=== PATIENT | male | born 1975 | race African-American/Black ===

== ENCOUNTER 2019-11-03 23:49 | Inpatient (IN) | payer MEDICAID ==
[~2019-11-03] VITALS: Ht 172.7 cm; Wt 71.2 kg
--- NOTE | 2019-11-03 23:55 | NUR ---
PT AAOX4. BIBMOTHER C/O R SCAPULA PAIN SINCE WEDNESDAY, WAS SEEN AT [facility] AND DISCHAGRED WITH MOTRIN. PT STILL C/O OF THE PAIN. ALSO, PT C/O "UNABLE TO WALK" SINCE 3PM TODAY. PLACED IN BED 9, ON MONITOR AND PULSE OX. UPON ASSESSMENT PT ABLE TO MOVE ALL EXTREMITIES, NO NEURO DEFICIT. PT WAS ABLE TO STAND, PUSH, AND PULL HIS FEET. KENDRICK. AT BEDSIDE FOR EVAL.
--- NOTE | 2019-11-04 00:10 | NUR ---
LINE ESTABLISHED RAC 18G FOR CT; LABS GIVEN TO CONCRETE CRAFTSMAN. RECTAL TEMP CHECKED, MD AWARE.
[2019-11-04] MEDS ORDERED: ONDANSETRON HCL/PF 4 MG/2 ML VIAL ONE (00:27)
[2019-11-04] MEDS ORDERED: MORPHINE SULFATE INJ 4 MG/ML DISP.SYRIN ONE (00:27)
[2019-11-04] MEDS ORDERED: MORPHINE SULFATE INJ 2 MG/ML DISP.SYRIN IV ONE (00:30)
[2019-11-04] MEDS ORDERED: ONDANSETRON HCL/PF 4 MG/2 ML VIAL IV ONE (00:30)
[2019-11-04 00:33] LABS: BASOPHILS % (AUTO) 0.3 % (0.0-2.0); EOSINOPHILS % (AUTO) 0.3 % (0.0-6.0); HEMATOCRIT 41 % (39-51); HEMOGLOBIN 13.7 g/dL (13.5-17.5); LYMPHOCYTES # (AUTO) 0.6 /CMM (0.8-4.8); LYMPHOCYTES % (AUTO) 4.6 % (20.0-44.0); MEAN CORPUSCULAR HGB CONC 34 g/dl (31.0-36.0); MEAN CORPUSCULAR VOLUME 84 fL (80-96); MONOCYTES # (AUTO) 0.9 /CMM (0.1-1.30); MONOCYTES % (AUTO) 7.2 % (2.0-12.0); NEUTROPHILS # (AUTO) 11.1 /CMM (1.8-8.9); NEUTROPHILS % (AUTO) 87.6 % (43.0-81.0); PLATELET COUNT (AUTO) 328 /CMM (150-450); RED BLOOD CELL COUNT(AUTO) 4.87 MIL/uL (4.5-6.0); WHITE BLOOD COUNT (AUTO) 12.7 K/uL (4.3-11.0)
[2019-11-04] MEDS ORDERED: ACETAMINOPHEN ES 500 MG TABLET ONE (00:35)
--- NOTE | 2019-11-04 00:38 | NUR ---
PT WAS ASKED TO GIVE A URINE SAMPLE, PT STATED HE WAS UNABLE TO. AFTER EXPLAINING THAT A CATHETER WOULD BE USED TO OBTAIN URINE; PT STATED HE WOULD TRY. PT STOOD ON BOTH FEET, WITHOUT ANY ASSITANCE TO URINATE.
--- NOTE | 2019-11-04 00:39 | NUR ---
URINE PROVIDED BY PATIENT; SENT TO LAB.
[2019-11-04 00:45] LABS: APPEARANCE,URINE Clear (CLEAR); BILIRUBIN,URINE SMALL (NEGATIVE); BLOOD, URINE Trace-intact Ery/uL (NEGATIVE); COLOR,URINE Yellow (YELLOW); KETONES,URINE 80 (NEGATIVE); LEUKOCYTE ESTERASE ,URINE Negative (NEGATIVE); NITRITE, URINE Negative (NEGATIVE); PROTEIN,URINE Negative (NEGATIVE); UGLUCOSE 500 MG/DL mg/dL (NEGATIVE); UROBILINOGEN,URINE 0.2 EU/dL (0.2)
--- NOTE | 2019-11-04 00:51 | NUR ---
PT BROUGHT TO CT.
[2019-11-04 01:00] LABS: CALCIUM, SERUM 9.1 mg/dL (8.5-10.1); CARBON DIOXIDE 25 mmol/L (21-32); CHLORIDE 95 mmol/L (98-107); POTASSIUM 3.8 mmol/L (3.5-5.1); SODIUM SERUM 132 mmol/L (136-145); UREA NITROGEN, BLOOD 19 mg/dL (7-18)
[2019-11-04] MEDS ORDERED: ACETAMINOPHEN 325 MG TABLET PO ONE (01:00)
[2019-11-04 01:01] LABS: BACTERIA,URINE Rare /HPF (None Seen); SQUAMOUS EPITHELIAL CELL,UR Rare /HPF (None Seen)
[2019-11-04 01:04] LABS: GLUCOSE 375 mg/dL (74-106)
--- NOTE | 2019-11-04 01:22 | NUR ---
BROUGHT BACK FROM CT
[2019-11-04] MEDS ORDERED: IV NS 0.9% 1,000 ML BAG IV ONE (01:30)
--- NOTE | 2019-11-04 01:39 | NUR ---
PT ABLE TO STAND. ALSO, WAS ABLE TO WALK BY HIMSELF WITH MINIMAL HELP. AWARE.
--- NOTE | 2019-11-04 02:34 | NUR ---
Patient is resting comfortably in bed. Easily aroused. VSS.
[2019-11-04] MEDS ORDERED: MAGNESIUM HYDROXIDE 30 ML UDC PO PRN (03:00)
[2019-11-04] MEDS ORDERED: ZOLPIDEM TARTRATE 5 MG TABLET PO PRN (03:00)
[2019-11-04] MEDS ORDERED: HYDROCODONE/APAP 5/325MG TABLET PO PRN (03:00)
[2019-11-04] MEDS ORDERED: MAG HYDROX/AL HYDROX/SIMETH 30 ML UDC PO PRN (03:00)
[2019-11-04] MEDS ORDERED: Z GUARD REMEDY 2 OZ OINT TP PRN (03:00)
[2019-11-04] MEDS ORDERED: ACETAMINOPHEN 325 MG TABLET PO PRN (03:00)
[2019-11-04] MEDS ORDERED: ONDANSETRON HCL/PF 4 MG/2 ML VIAL IVP PRN (03:00)
[2019-11-04] MEDS ORDERED: DEXTROSE 50%-WATER 50 ML DISP.SYRIN IV PRN (03:00)
[2019-11-04] MEDS ORDERED: *INSULIN REGULAR(HUMULIN R)HUM 100 UNIT/ML VIAL SQ PRN (03:00)
[2019-11-04 03:45] VITALS: BP 141/80
--- NOTE | 2019-11-04 04:00 | NUR ---
MS RN: ADMISSION 44 years old male admitted for Dx. Weakness. Patient is A/O x2, trouble understanding and speaking words when asked. Skin intact. BLE weakness. Stable oxygenation on room air. Fall precaution maintained.
[2019-11-04 04:30] VITALS: BP 141/80
--- NOTE | 2019-11-04 05:37 | NUR ---
MS RN: NIH SCORE Patient had eval for Stoke at ER prior transfer, Dr. Hudson made aware, per MD to do NIH stroke scale also at the unit. NIH stroke scale score 7. Notified Dr. Hudson with result and informed MD core measure stroke/ aspirin to give within 24 hours.
--- NOTE | 2019-11-04 06:20 | NUR ---
MS RN: SWALLOW EVAL Patient failed bedside swallow screen, trouble speaking and understanding words. Notified cody Rivas patient NPO, Speech therapy consult.
[2019-11-04] MEDS: BLOOD SUGAR DIAGNOSTIC 1 EACH STRIP VI SCH ×4 (06:34→23:05)
[2019-11-04] MEDS: INSULIN REGULAR, HUMAN 100 UNIT/ML 3 ML VIAL SQ PRN ×3 (06:48→18:42)
--- NOTE | 2019-11-04 06:48 | NUR ---
MS RN: BLOOD GLUCOSE Blood sugar 301 mg/dl patient is NPO, notified Dr. Hudson. Order place. Given 12 units insulin dose per parameters, ok to give per MD. Also informed MD with Core measure/stoke Aspirin within 24 hours to give.
[2019-11-04] MEDS ORDERED: ASPIRIN 325 MG TABLET PO ONE (07:00)
--- NOTE | 2019-11-04 07:39 | NUR ---
MS RN: END OF SHIFT REPORT Patient in bed, awake, stable oxygenation on room air. NPO awaiting Speech eval. Weakness BLE, patient reports unable to walk. Plan for PT consult today. Frequent neuro check assessment. Stroke eduction provided to patient. Aspirin to be given, endorsed to ENRRIQUE Monge for continuity of care.
--- NOTE | 2019-11-04 07:45 | NUR ---
RN MS NOTES PT IN BED, AWAKE, ALERT AND ORIENTED, RESPIRATIONS NORMAL AND UNLABORED, WITH COMPLAINT OF PAIN TO UPPER RIGHT BACK AND LOWER BACK, WITH BLE WEAKNESS, NURSING SWALLOW EVAL DONE, NO PROBLEMS NOTED, CALL LIGHT WITHIN REACH.
[2019-11-04 08:00] VITALS: BP 143/84
--- NOTE | 2019-11-04 08:35 | NUR ---
RN MS NOTES NURSING SWALLOW EVAL PERFORMED, NO PROBLEM NOTED.
[2019-11-04] MEDS ORDERED: POLYETHYLENE GLYCOL 3350 17 GM POWD.PACK PO PRN (11:30)
[2019-11-04] MEDS: IV NS 0.9% 1,000 ML IV PRN (11:53)
--- NOTE | 2019-11-04 12:30 | NUR ---
RN MS NOTES PT COMPLAINED OF UNABLE TO URINATE, NOTED WITH BLADDER DISTENTION, BLADDER SCAN SHOWED 900ML OF URINE, DR. PHELAN INFORMED, ORDERED TO INSERT STEVENS, PT TOLERATED PROCEDURE WELL, ALSO INFORMED OF URINE CULTURE FROM [facility] LYNN EID MD ORDERED TO START PT ON IV FLUIDS AND ROCEPHIN DAILY, PT INFORMED, VERBALIZED UNDERSTANDING, PT ALSO STARTED ON CCHO DIET ORDERED.
[2019-11-04] MEDS: CEFTRIAXONE 1 G in IV D5W 50 ML IV SCH (13:05)
--- NOTE | 2019-11-04 13:46 | NUR ---
RN MS NOTES SEEN AND EXAMINED BY DR. PHELAN, PLAN OF CARE DISCUSSED WITH PT, VERBALIZED UNDERSTANDING. SEEN AND EVALUATED BY CHAR KRUGER.
[2019-11-04 16:00] VITALS: BP 143/76
--- NOTE | 2019-11-04 16:26 | NUR ---
TEXTED DR. DOBSON FOR MRI APPROVAL.
--- NOTE | 2019-11-04 16:33 | NUR ---
MRI APPROVED, HEAD ATHLETIC TRAINER/STRENGTH COACH IS ON HIS WAY IN NOW.
--- NOTE | 2019-11-04 19:00 | NUR ---
RN MS NOTES PT IN BED, RESTING, NO COMPLAINT OF PAIN AT THIS TIME, RESPIRATIONS NORMAL, CALL LIGHT WITHIN REACH, IV FLUIDS INFUSING WELL, COMPLETED MRI BRAIN AND MRI SPINE, AWAITING RESULTS, ATE DINNER, BS CHECKED, ASSISTED WITH MEALS AND REPOSITIONING, ALL NEEDS ATTENDED.
[2019-11-04 20:00] VITALS: BP 149/78
--- NOTE | 2019-11-04 20:00 | NUR ---
MS/RN OPENING NOTES RECEIVED PATIENT IN BED. AWAKE, ALERT X3, ABLE TO VERBALIZE NEEDS, BELONGINGS WITHIN REACH, PROVIDED ICE CHIPS PER REQUEST AND NAUSEA BAGS. DISCUSSED CONCERNS REGARDING PENDING MRI AND THAT FEEL DIZZY. TO CARE AND FOLLOWUP CONCERNS. RECEIVED ENDORSEMENT FROM AM RN FOR SHERIN. RESPIRATIONS EVEN AND UNLABORED.WILL MONITOR,
--- NOTE | 2019-11-04 20:55 | NUR ---
MS/RN NOTES PATIENT AWAKE, ALERT, CAN OPEN EYES, RESPIRATIS EVEN AND UNLABORED BUT REPORTED NO SENSATION ON BLE. TO FOLLOW UP.
[2019-11-04] MEDS ORDERED: INSULIN GLARGINE, 100 UNIT/ML CARTRIDGE SQ SCH (22:00)
--- NOTE | 2019-11-04 23:10 | NUR ---
BS CHECK AT 214 TO GIVE COVERAGE AND LANTUS ORDERED.
[2019-11-05] MEDS: IV NS 0.9% 1,000 ML IV PRN ×2 (05:59→14:20)
[2019-11-05] MEDS: BLOOD SUGAR DIAGNOSTIC 1 EACH STRIP VI SCH ×3 (06:23→17:20)
[2019-11-05] MEDS: INSULIN REGULAR, HUMAN 100 UNIT/ML 3 ML VIAL SQ PRN ×2 (06:30→12:19)
--- NOTE | 2019-11-05 07:30 | NUR ---
RN MS NOTES PT IN BED, AWAKE, ALERT AND ORIENTED, NO COMPLAINT OF PAIN, RESPIRATIONS NORMAL AND NOT LABORED, COMPLAINING OF NO SENSATION ON BLE'S, IV FLUIDS INFUSING WELL, ENCOURAGED TO EAT, VERBALIZED UNDERSTANDING, CALL LIGHT WITHIN REACH, NEEDS ATTENDED.
--- NOTE | 2019-11-05 07:37 | NUR ---
312-1 MS/RN NOTES PATIENT ABLE TO SLEEP DURING THE NIGHT, ON ROOM AIR BREATHING EVEN AND UNLABORED, IV FLUID INFUSING, ATTENDED TO ALL NEEDS, STEVENS CATHETHER DRAINING URINE, MONITORED FOR ANY CHANGES. WILL ENDORSE TO AM RN FOR SHERIN. BED LOCKED, CALL LIGTHS WITHIN REACH.
[2019-11-05 08:00] VITALS: BP 125/70
[2019-11-05 08:15] LABS: BASOPHILS % (AUTO) 0.2 % (0.0-2.0); EOSINOPHILS % (AUTO) 0.9 % (0.0-6.0); HEMATOCRIT 38 % (39-51); HEMOGLOBIN 12.9 g/dL (13.5-17.5); LYMPHOCYTES # (AUTO) 0.6 /CMM (0.8-4.8); LYMPHOCYTES % (AUTO) 5.8 % (20.0-44.0); MEAN CORPUSCULAR HGB CONC 34 g/dl (31.0-36.0); MEAN CORPUSCULAR VOLUME 84 fL (80-96); MONOCYTES # (AUTO) 0.8 /CMM (0.1-1.30); MONOCYTES % (AUTO) 7.5 % (2.0-12.0); NEUTROPHILS # (AUTO) 9.4 /CMM (1.8-8.9); NEUTROPHILS % (AUTO) 85.6 % (43.0-81.0); PLATELET COUNT (AUTO) 327 /CMM (150-450); RED BLOOD CELL COUNT(AUTO) 4.53 MIL/uL (4.5-6.0); WHITE BLOOD COUNT (AUTO) 10.9 K/uL (4.3-11.0)
[2019-11-05 09:05] LABS: CALCIUM, SERUM 8.4 mg/dL (8.5-10.1); CREATININE 0.7 mg/dL (0.6-1.3); MAGNESIUM 1.7 mg/dL (1.8-2.4); PHOSPHORUS 2.4 mg/dL (2.5-4.9); POTASSIUM 3.3 mmol/L (3.5-5.1); THYROID STIMULATING HORMONE 1.514 uIU/mL (0.358-3.74)
[2019-11-05] MEDS ORDERED: K PHOS NEUTRAL 250 MG TABLET PO ONE (11:30)
--- NOTE | 2019-11-05 11:50 | NUR ---
assisted dr. Urbina with LP, pt tolerated well, no pain or bleeding noted. CSF delivered to the lab by Mariposa OSUNA.
[2019-11-05] MEDS: CEFTRIAXONE 1 G in IV D5W 50 ML IV SCH (12:17)
[2019-11-05 12:43] LABS: CSF GLUCOSE 100 mg/dL (40-70)
[2019-11-05 12:48] LABS: ABG BASE EXCESS 1.3 mmol/L; ABG OXYGEN SATURATION 96.1 % (92.0-98.5); ABG PCO2 33.1 mmHg (35.0-45.0); ABG PH 7.482 (7.350-7.450); ABG PO2 80.4 mmHg (75.0-100.0); AaDO2 29.7 mmHg; COHb 1.1 % (0.5-1.5); MetHb 0.3 % (0.0-1.5); O2Hb 94.8 % (94.0-97.0); SITE, ABG Right Radial; VENT MODE, BG RA
--- NOTE | 2019-11-05 12:51 | NUR ---
RT NOTE PT GIVEN AND INSTRUCTED ON USE OF INCENTIVE SPIROMETER. PT IS UNABLE TO PROPERLY USE THE SPIROMETER DUE TO CHEST PAIN STATED BY PATIENT. ENDORSED I.S. RESULTS TO YO RN AND HIGHWAY CONSTRUCTION INSPECTOR. PT IS ON ROOM AIR. SP02 98%. ABG DRAWN AND RESULTS GIVEN TO YO OSUNA.
[2019-11-05 13:17] LABS: CSF PROTEIN 513.2 mg/dL (15-45)
[2019-11-05] MEDS ORDERED: MISCELLANEOUS MED 1 EA EA XX STA (13:22)
--- NOTE | 2019-11-05 13:28 | NUR ---
RN MS NOTES PT IN BED, AWAKE, ALERT AND ORIENTED, NO COMPLAINT OF PAIN AT THIS TIME, RESPIRATIONS NORMAL, CALL LIGHT WITHIN REACH, IV FLUIDS INFUSING WELL, PT COMPLAINING OF LOSS OF SENSATION TO BLE'S, DR. PHELAN INFORMED, LUMBAR PUNCTURE PERFORMED, SPECIMEN SENT TO LAB, PT SEEN BY DR. JUAREZ, DR. PHELAN ORDERED TO TRANSFER PT TO ICU FOR CLOSE MONITORING, PT INFORMED AND UNDERSTOOD, AGREED WITH PLAN OF CARE, ABG STAT ORDERED, WITH NORMAL RESULTS, MOVED PT TO ICU ROOM 265 VIA ACLS PROTOCOL, WITH ALL MEDS AND BELONGINGS, BEDSIDE REPORT GIVEN TO JOSE A STARTING GATE DRIVER, FAMILY INFORMED OF PT'S TRANSFER, VERBALIZED UNDERSTANDING.
--- NOTE | 2019-11-05 14:00 | NUR ---
UNIVERSITY TUTOR NOTE RECEIVED PATIENT FROM TELE UNIT , ALERT ORIENTED X3 ,ON RA SAT 94% STILL C\O THAT CANT FEEL BOTH LEGS, WITH STEVENS CATH TO GRAVITY WITH YELLOW COLOR URINE, ON IVF ORDERED PATIENT, TAKEN TO MRI DEPARTMENT WILL CONT TO MONITOR CLOSELY
[2019-11-05] MEDS: MORPHINE SULFATE INJ 2 MG/ML DISP.SYRIN IV PRN ×2 (15:06→15:51)
--- NOTE | 2019-11-05 15:10 | NUR ---
NIF and FVC PERFORMED 3 TIMES EACH TEST AND BEST EFFORT LISTED BELOW: NIF: -22 cm H20 FVC: 1. 2 LITER Addendum: 11/05/19 at 1513 by VAN GALLEGOS RT Amended: Links added.
--- NOTE | 2019-11-05 15:28 | NUR ---
MINI LAB OPERATOR NOTE BACK FROM MRI NOT IN DISTRESS, PLACED ON IVF ORDERED RT AC HL INTACT AND FLUSHED WELL , C\O RT SHOULDER PAIN 8\10 MORPHINE 2MG IVP[ GIVEN PER DR LUZ GALVEZ ORDER WILL F\U
--- NOTE | 2019-11-05 15:32 | NUR ---
RESIDENCE DIRECTOR NOTE RT AT BEDSIDE PEAK FLOW ASSESSMENT DONE
--- NOTE | 2019-11-05 15:48 | NUR ---
BRAIDED BAND ASSEMBLER NOTES PERFORMED COVID TEST @1435. SENDING TO THE LAB. CONTINUE TO MONITOR.
[2019-11-05 16:00] VITALS: BP 145/78
[2019-11-05 16:15] VITALS: BP 145/58
[2019-11-05] MEDS ORDERED: VANCOMYCIN HCL 1.25 GM in IV D5W 260 ML IV ONE (16:30)
[2019-11-05] MEDS ORDERED: FEE PK DOSING 1 MIN EA MC ONE (16:35)
--- NOTE | 2019-11-05 16:42 | NUR ---
agricultural research technician note efra Zaman dnp aware of mri spine result, with order to transfer to [facility] acute hospital and keep npo at this time, will f\u
[2019-11-05] MEDS ORDERED: GADOTERIDOL 279.3 MG/ML VIAL IV ONE ×2 (17:48→19:30)
--- NOTE | 2019-11-05 17:50 | NUR ---
NIF / FVC NIF and FVC performed 3 times, Best test listed below: NIF: greater than -60 cm H20 FVC: 2.75 Liter Addendum: 11/05/19 at 1757 by VAN GALLEGOS RT Amended: Links added.
[2019-11-05] MEDS ORDERED: ONDA4VIA23 IVP (17:55)
[2019-11-05] MEDS ORDERED: Morphine Sulfate Inj IV (17:55)
[2019-11-05] MEDS ORDERED: ACET325T53 PO (17:55)
[2019-11-05] MEDS ORDERED: Insulin Glargine,Hum SQ (17:55)
[2019-11-05] MEDS ORDERED: VANC1.2526 IV (17:55)
[2019-11-05] MEDS ORDERED: INSU100V28 SQ (17:55)
[2019-11-05] MEDS ORDERED: CEFT2VIA14 IV (17:55)
[2019-11-05] MEDS ORDERED: Blood Sugar Diagnostic VI (17:55)
[2019-11-05] MEDS ORDERED: CEFTRIAXONE 2 G in IV D5W 100 ML IV SCH (18:00)
[2019-11-05 18:07] VITALS: BP 139/78
--- NOTE | 2019-11-05 18:26 | NUR ---
ICU CLOSING NOTES PT IS GOING TO TRANSFER TO [facility]. WAITING FOR HIGHWAY WORKER. SAFETY MEASURES ARE IMPLEMENTED. BED IN LOWEST POSITION. CALL LIGHT WITHIN REACH.
--- NOTE | 2019-11-05 19:19 | NUR ---
CAR MANAGER NOTES AMBULANCE ARRIVED. REPORT GIVEN TO ECTOR. CALLED [facility]. TRAINING AND DEVELOPMENT PROFESSIONAL IS AWARE. STEVENS CATHETER EMPTIED. PT IS IN STABLE CONDITION. Addendum: 11/05/19 at 1929 by JOSE A ZHONG RN spoke with family emma aware that patient will be transfer to [facility]
[2019-11-06] MEDS ORDERED: VANCOMYCIN HCL 1.25 GM in IV D5W 260 ML IV SCH (01:00)
[2019-11-06] MEDS ORDERED: CEFTRIAXONE 2 G in IV D5W 100 ML IV SCH (18:00)
[2019-11-08 08:06] LABS: *CRYPTOCOCCUS AG, CSF Negative (Negative); *WEST NILE VIRUS IgG, CSF Negative (Negative)
[2019-11-08 10:08] LABS: *WEST NILE VIRUS IgM, CSF Negative (Negative)
[2019-11-08 11:06] LABS: VDRL, CSF Non Reactive (Non Rea:<1:1)
== END 2019-11-05 19:31 | disposition short-term general hospital (02) | DRG 49 ==
LOC: ER 23:57 → MED 11-04 03:16 → ICU 11-05 12:25
PROVIDERS: ADMIT Nurse Practitioner Acute Care; ATTEND Nurse Practitioner Acute Care
DX: G06.1 Intraspinal abscess and granuloma (principal); G61.0 Guillain-Barre syndrome; E11.65 Type 2 diabetes mellitus with hyperglycemia; E87.1 Hypo-osmolality and hyponatremia; D72.829 Elevated white blood cell count, unspecified; E86.0 Dehydration; G95.20 Unspecified cord compression; N13.30 Unspecified hydronephrosis; N32.89 Other specified disorders of bladder; G06.2 Extradural and subdural abscess, unspecified
CPT/HCPCS: 36415; 36600; 70450-TC; 70551-TC; 71045-TC; 71250-TC; 72131-TC; 72157-TC; 72158-TC; 80048-TC; 80061-TC; 81000-TC; 82962-TC; 83735-TC; 84100-TC; 84443-TC; 84484-TC; 85025-TC; 85652-TC; 85730-TC; 86140-TC; 86592; 86694; 86788; 86789; 87040-TC; 87070-TC; 87081-TC; 87086-TC; 87899; 89051-TC; 97112-TC; 97530-TC; A6403; A9579; G0378; J0696; J1815; J2270; J2405; J7030; J7040; J7060; U0003-CS

== ENCOUNTER 2019-11-07 17:20 | Inpatient (IN) | payer MEDICAID ==
[~2019-11-07] VITALS: Ht 165.1 cm; Wt 67.1 kg
[~2019-11-07 17:20] MED LIST: ACET325T53 PO; Blood Sugar Diagnostic VI; CEFT2VIA14 IV; INSU100V28 SQ; Insulin Glargine,Hum SQ; Morphine Sulfate Inj IV; ONDA4VIA23 IVP; VANC1.2526 IV
[2019-11-07 22:45] VITALS: BP 134/75
--- NOTE | 2019-11-07 22:45 | NUR ---
CRUSHER AND BLENDER OPERATOR: ADMISSION 44 years old male admitted from [facility]. s/p Thoracic laminectomy decompression on 11/05/[address] Rapp. Patient is A/O x4. Skin assessment done. Left upper back with ROXANA to bulb suction, serosanguineous drainage. Mid upper back incision healing open to air. Patient denies pain, reports no sensation from below rib cage down to bilateral toes, BLE no movement, paraplegic. Patient is cooperative. Mccarthy cath in place. Orientation to room, unit, staff. Fall; skin precaution maintained. Notified Dr. Powell for admission.
[2019-11-07 23:00] VITALS: BP 134/75
[2019-11-07] MEDS ORDERED: INSULIN REGULAR, HUMAN 100 UNIT/ML 3 ML VIAL SQ PRN (23:30)
[2019-11-07] MEDS ORDERED: MAG HYDROX/AL HYDROX/SIMETH 30 ML UDC PO PRN (23:30)
[2019-11-07] MEDS ORDERED: Z GUARD REMEDY 2 OZ OINT TP PRN (23:30)
[2019-11-07] MEDS ORDERED: ONDANSETRON HCL/PF 4 MG/2 ML VIAL IVP PRN ×2 (23:30)
[2019-11-07] MEDS ORDERED: MORPHINE SULFATE INJ 2 MG/ML DISP.SYRIN IV PRN ×2 (23:30)
[2019-11-07] MEDS ORDERED: MAGNESIUM HYDROXIDE 30 ML UDC PO PRN (23:30)
[2019-11-08] MEDS ORDERED: INSU100V39 SQ (00:10)
[2019-11-08] MEDS ORDERED: MORP1VIA3 IV (00:10)
[2019-11-08] MEDS ORDERED: CYCL10TA9 PO (00:10)
[2019-11-08] MEDS ORDERED: CLON0.1T PO (00:10)
[2019-11-08] MEDS ORDERED: PANT40TA2 PO (00:10)
[2019-11-08] MEDS ORDERED: ACET-868 PO (00:10)
[2019-11-08] MEDS ORDERED: DOCU-141 PO (00:10)
[2019-11-08] MEDS ORDERED: HYDR-4384 PO (00:10)
[2019-11-08] MEDS ORDERED: HEPA500013 SQ (00:10)
[2019-11-08] MEDS ORDERED: IPRA3AMP22 IH (00:12)
[2019-11-08] MEDS ORDERED: INSU100V7 SQ (00:16)
[2019-11-08] MEDS ORDERED: BLOOD SUGAR DIAGNOSTIC 1 EACH STRIP IN SCH (00:30)
[2019-11-08] MEDS ORDERED: CEFTRIAXONE 2 G in IV D5W 50 ML IV SCH ×2 (00:30→09:00)
[2019-11-08 00:32] VITALS: BP 129/70
[2019-11-08] MEDS ORDERED: DEXTROSE 50%-WATER 50 ML DISP.SYRIN IV PRN (06:30)
[2019-11-08] MEDS: BLOOD SUGAR DIAGNOSTIC 1 EACH STRIP VI SCH ×4 (06:32→22:05)
[2019-11-08] MEDS: INSULIN REGULAR, HUMAN 100 UNIT/ML 3 ML VIAL SQ PRN ×3 (06:34→17:03)
--- NOTE | 2019-11-08 07:15 | NUR ---
MS RN: END OF SHIFT REPORT Patient in bed, stable oxygenation on room air. Medial back incision dry, no bleeding, denies pain. Left ROXANA to bulb suction with minimal drainage 25ml. Mccarthy to gravity with adequate output. MRSA nares specimen send to lab for test. Fall; skin precaution maintained.
--- NOTE | 2019-11-08 07:20 | NUR ---
MS/RN Opening note Patient received from material handler 2nd shift. Sleeping soundly at this time, appears in no distress or pain at this time. Safety measures in place, call light within reach, will continue to monitor and ensure safety.
[2019-11-08 07:57] LABS: BASOPHILS % (AUTO) 0.1 % (0.0-2.0); EOSINOPHILS % (AUTO) 1.3 % (0.0-6.0); HEMATOCRIT 36 % (39-51); HEMOGLOBIN 11.8 g/dL (13.5-17.5); LYMPHOCYTES # (AUTO) 0.9 /CMM (0.8-4.8); LYMPHOCYTES % (AUTO) 11.3 % (20.0-44.0); MEAN CORPUSCULAR HGB CONC 33 g/dl (31.0-36.0); MEAN CORPUSCULAR VOLUME 84 fL (80-96); MONOCYTES # (AUTO) 0.7 /CMM (0.1-1.30); MONOCYTES % (AUTO) 8.3 % (2.0-12.0); NEUTROPHILS # (AUTO) 6.4 /CMM (1.8-8.9); PLATELET COUNT (AUTO) 324 /CMM (150-450); RED BLOOD CELL COUNT(AUTO) 4.26 MIL/uL (4.5-6.0); WHITE BLOOD COUNT (AUTO) 8.1 K/uL (4.3-11.0)
[2019-11-08 08:00] VITALS: BP 126/71
[2019-11-08 08:20] LABS: CALCIUM, SERUM 7.4 mg/dL (8.5-10.1); CREATININE 0.8 mg/dL (0.6-1.3); MAGNESIUM 1.9 mg/dL (1.8-2.4); PHOSPHORUS 2.6 mg/dL (2.5-4.9); POTASSIUM 3.8 mmol/L (3.5-5.1)
--- NOTE | 2019-11-08 08:50 | NUR ---
MS/RN S/B Dr Arceo Seen by Dr Arceo - morning labs ordered.
[2019-11-08] MEDS ORDERED: Medication Not On Formulary EA (Ceftriaxone Sodium (Rocephin) 2 GM) IV SCH (09:00)
[2019-11-08] MEDS ORDERED: CEFTRIAXONE 2 G in IV D5W 100 ML IV SCH (09:00)
[2019-11-08] MEDS: CEFTRIAXONE 2 G in IV D5W 100 ML IV SCH (09:08)
[2019-11-08] MEDS ORDERED: FEE PK DOSING 1 MIN EA MC ONE (09:42)
--- NOTE | 2019-11-08 09:46 | NUR ---
MS/RN Mercedes Vancomycin ordered, 1gm every eight hours. Trough scheduled 11/09/19 at 9am.
[2019-11-08] MEDS: VANCOMYCIN 1 GM in IV D5W 250 ML IV SCH ×2 (10:35→17:04)
--- NOTE | 2019-11-08 12:23 | NUR ---
MS/RN Blood sugar Blood sugar at noon 215, as per sliding scale 12 units regular insulin administered.
[2019-11-08 15:53] VITALS: BP 138/80
[2019-11-08 16:00] VITALS: BP 138/80
--- NOTE | 2019-11-08 17:00 | NUR ---
MS/RN Blood sugar Blood sugar at 5p 256, as per sliding scale, nine units regular insulin administered.
[2019-11-08] MEDS ORDERED: POLYETHYLENE GLYCOL 3350 17 GM POWD.PACK PO ONE (17:30)
--- NOTE | 2019-11-08 17:32 | NUR ---
MS/RN New orders Dr Arceo made aware that patient has had no bowel movement for 6-7 days, new order given for miralax and colace, first dose of both to be given now.
--- NOTE | 2019-11-08 17:33 | NUR ---
MS/RN Drainage 20ml output from ROXANA drain.
--- NOTE | 2019-11-08 18:04 | NUR ---
MS/RN End note Miralax and MOM administered, no bowel movement as of yet. Denies pain or discomfort, bilateral lower extremities flacid. Denies any feeling or sensation. Patient made aware that Dr Arceo will call sister later this evening after he has received all notes including those from [place]. Will endorse to night shift manager.
--- NOTE | 2019-11-08 19:30 | NUR ---
MS RN NOTES RECEIVED ON BED ON LEFT SIDE POSITION,A/O X4,BREATHING REGULAR,NOT IN NAY FORM OF DISTRESS.STEVENS CATH IN PLACE DRAINING YELLOWISH URINE OUTPUT.PARAPLEGIC ON BOTH LOWER EXTREMITIES.WITH MID UPPER BACK SURGICAL INCISION.S/P LAMINECTOMY ON 11/04,DENIES PAIN AT THE MOMENT.DVT PUMP IN USED FOR DVT PROPHYLAXIS.SALINE LOCK RIGHT FOREARM INTACT AND PATENT.CALL LIGHT IN REACH,NEEDS ANTICIPATED.
[2019-11-08 20:00] VITALS: BP 135/78
--- NOTE | 2019-11-08 22:00 | NUR ---
MS RN NOTES ACCU-CHECK BLOOD SUGAR CHECK 290,COVERED WITH HUMULIN R 6 UNITS Q HS,ALONG WITH LANTUS 10 UNITS PER SLIDING SCALE.SNACKS PROVIDED AT BEDSIDE.
[2019-11-08] MEDS: INSULIN GLARGINE, 100 UNIT/ML CARTRIDGE SQ SCH (22:05)
[2019-11-08] MEDS: *INSULIN REGULAR(HUMULIN R)HUM 100 UNIT/ML VIAL SQ PRN (22:06)
[2019-11-09] MEDS: VANCOMYCIN 1 GM in IV D5W 250 ML IV SCH ×3 (01:56→17:05)
[2019-11-09] MEDS: BLOOD SUGAR DIAGNOSTIC 1 EACH STRIP VI SCH ×4 (05:29→22:22)
--- NOTE | 2019-11-09 05:30 | NUR ---
MS RN NOTES ACCU-CHECK BLOOD SUGAR CHECK 230,COVERED WITH HUMULIN R 6 UNITS PER MODERATE SLIDING SCALE.
[2019-11-09] MEDS: INSULIN REGULAR, HUMAN 100 UNIT/ML 3 ML VIAL SQ PRN ×3 (05:40→17:09)
--- NOTE | 2019-11-09 06:16 | NUR ---
MS RN NOTES FAIRLY RESTED.REMAINS NO BM DESPITE MEDICATION FOR CONSTIPATION GIVEN ON DAYTIME YESTERDAY.DENIES PAIN DISCOMFORTS.ROXANA DRAINS SERO SANGUINOUS OUTPUT 70ML.REPOSITION PER PROTOCOL.CALL LIGHT IN REACH,NEEDS ATTENDED.
[2019-11-09 07:32] LABS: BASOPHILS % (AUTO) 0.3 % (0.0-2.0); EOSINOPHILS % (AUTO) 0.9 % (0.0-6.0); HEMATOCRIT 36 % (39-51); HEMOGLOBIN 12.2 g/dL (13.5-17.5); LYMPHOCYTES % (AUTO) 12.4 % (20.0-44.0); MEAN CORPUSCULAR HGB CONC 34 g/dl (31.0-36.0); MEAN CORPUSCULAR VOLUME 83 fL (80-96); MONOCYTES # (AUTO) 0.7 /CMM (0.1-1.30); MONOCYTES % (AUTO) 7.9 % (2.0-12.0); NEUTROPHILS # (AUTO) 6.7 /CMM (1.8-8.9); NEUTROPHILS % (AUTO) 78.5 % (43.0-81.0); PLATELET COUNT (AUTO) 304 /CMM (150-450); RED BLOOD CELL COUNT(AUTO) 4.34 MIL/uL (4.5-6.0); WHITE BLOOD COUNT (AUTO) 8.5 K/uL (4.3-11.0)
--- NOTE | 2019-11-09 07:38 | NUR ---
MS/RN Opening note Patient received from night manager, sleeping soundly at this time. Appears in no distress or pain. Will continue to monitor and ensure safety.
[2019-11-09 07:39] LABS: CALCIUM, SERUM 8.2 mg/dL (8.5-10.1); CREATININE 0.6 mg/dL (0.6-1.3); MAGNESIUM 2.1 mg/dL (1.8-2.4); PHOSPHORUS 2.9 mg/dL (2.5-4.9)
[2019-11-09 08:00] VITALS: BP 119/72
[2019-11-09] MEDS: DOCUSATE SODIUM 100 MG CAPSULE PO SCH ×2 (08:34→17:05)
[2019-11-09] MEDS: CEFTRIAXONE 2 G in IV D5W 100 ML IV SCH (08:34)
--- NOTE | 2019-11-09 08:47 | NUR ---
MS/RN S/B Dr Arceo Seen by DNP - physical therapy ordered, need to follow up with [facility] to obtain culture results. Awaiting call back from Dr Gore regarding drain removal and further post op orders.
[2019-11-09] MEDS: HEPARIN SODIUM, PORCINE 5000 UNITS/1 ML VIAL SQ SCH ×2 (09:11→22:05)
--- NOTE | 2019-11-09 11:00 | NUR ---
MS/RN Physical therapy Seen by PT - patient to be seen daily for trunk strengthening exercises.
--- NOTE | 2019-11-09 12:15 | NUR ---
MS/RN Blood sugar Blood sugar at noon 342, insulin coverage as per sliding scale.
[2019-11-09 16:00] VITALS: BP 129/73
--- NOTE | 2019-11-09 16:00 | NUR ---
MS/mobile sales assistant update Sister Emma called and updated as to plan of care by Dr Arceo. Made aware that patient was very unlikely to regain any sensation or movement of lower extremities. All questions and concerns addressed.
--- NOTE | 2019-11-09 17:15 | NUR ---
MS/RN Blood sugar Blood sugar at 5p - 259, 9 units regular insulin as per sliding scale.
--- NOTE | 2019-11-09 18:00 | NUR ---
MS/RN Drainage Surgical output from ROXANA - 15ml.
--- NOTE | 2019-11-09 18:32 | NUR ---
MS/RN End note Patient remains in stable condition. No new needs or concerns, all questions answered. Will endorse to night shift supervisor.
--- NOTE | 2019-11-09 19:45 | NUR ---
MS RN NOTES RECEIVED ON HIGH FOWLERS POSITION,CLAIMED HE JUST ATE HIS DINNER FOOD.REMAINS PARAPLEGIC ON BOTH LOWER EXTREMITIES.REMAINS NO BM,WILL ADMINISTER MIRALAX TONIGHT.ROXANA DRAIN IN PLACE DRAINING SERO SANGUINOUS OUTPUT.STEVENS CATH IN PLACE DRAINING YELLOWISH OUTPUT.CALL LIGHT IN REACH,NEEDS ANTICIPATED.
[2019-11-09 20:16] VITALS: BP 132/76
[2019-11-09 20:50] VITALS: BP 132/76
--- NOTE | 2019-11-09 22:30 | NUR ---
MS RN NOTES ACCU-CHECK BLOOD SUGAR CHECK 320,COVERED WITH HUMULIN R 8 UNITS,ALONG WITH LANTUS 10 UNITS Q HS ADMINISTERED SQ ON RIGHT DELTOID.REFUSED SNACKS THIS TIME.
[2019-11-09] MEDS: INSULIN GLARGINE, 100 UNIT/ML CARTRIDGE SQ SCH (22:34)
[2019-11-09] MEDS: *INSULIN REGULAR(HUMULIN R)HUM 100 UNIT/ML VIAL SQ PRN (22:35)
[2019-11-10] MEDS: BLOOD SUGAR DIAGNOSTIC 1 EACH STRIP VI SCH ×4 (05:24→22:14)
--- NOTE | 2019-11-10 05:30 | NUR ---
MS RN NOTES ACCU-CHECK BLOOD SUGAR CHECK 233.COVERED WITH HUMULIN R 8 UNITS PER MODERATE SLIDING SCALE.
[2019-11-10] MEDS: INSULIN REGULAR, HUMAN 100 UNIT/ML 3 ML VIAL SQ PRN (05:34)
[2019-11-10 06:20] LABS: BASOPHILS % (AUTO) 0.5 % (0.0-2.0); EOSINOPHILS % (AUTO) 1.4 % (0.0-6.0); HEMATOCRIT 36 % (39-51); HEMOGLOBIN 12.1 g/dL (13.5-17.5); LYMPHOCYTES % (AUTO) 12.2 % (20.0-44.0); MEAN CORPUSCULAR HGB CONC 33 g/dl (31.0-36.0); MEAN CORPUSCULAR VOLUME 83 fL (80-96); MONOCYTES # (AUTO) 0.7 /CMM (0.1-1.30); NEUTROPHILS # (AUTO) 6.6 /CMM (1.8-8.9); NEUTROPHILS % (AUTO) 77.9 % (43.0-81.0); PLATELET COUNT (AUTO) 293 /CMM (150-450); RED BLOOD CELL COUNT(AUTO) 4.35 MIL/uL (4.5-6.0); WHITE BLOOD COUNT (AUTO) 8.5 K/uL (4.3-11.0)
--- NOTE | 2019-11-10 06:28 | NUR ---
MS RN NOTES NO SIGNIFICANT CHANGE IN STATUS.SLEEP WELL,DENIES PAIN,PT/OT FOR UPPER4 EXTREMITY STRENGTENING.CALL LIGHT IN REACH.NEEDS ATTENDED.IN NO ACUTE DISTRESS
[2019-11-10 07:03] LABS: CALCIUM, SERUM 8.2 mg/dL (8.5-10.1); CREATININE 0.8 mg/dL (0.6-1.3); POTASSIUM 4.3 mmol/L (3.5-5.1)
[2019-11-10 07:20] LABS: MAGNESIUM 1.9 mg/dL (1.8-2.4); PHOSPHORUS 3.2 mg/dL (2.5-4.9)
[2019-11-10 08:00] VITALS: BP 99/66
--- NOTE | 2019-11-10 08:00 | NUR ---
MS RN OPENING NOTES RECEIVED PT IN BED AWAKE ALERT AND ORIENTED X 4. NO CARDIAC OR RESPIRATORY DISTRESS NOTED. NO SOB NOTED. SATURATING WELL ON ROOM AIR. IV ACCESS NOTED ON R FOREARM G22. INTACT AND PATENT AND FLUSHING WELL. NO S/S OF INFECTION OR INFILTRATION NOTED. STEVENS CATH IN PLACE. PATENT AND DRAINING WITH CLEAR YELLOW URINE. PT ALSO NOTED WITH A ANIYAH DONALDSON DRAIN RIGHT NEXT TO BACK SURGICAL INCISION. NO DRAINAGE NOTED AT THIS TIME. SAFETY PRECAUTIONS IN PLACE. BED LOCKED AND IN LOW POSITION, SIDE RAILS UP, CALL LIGHT WITHIN REACH. WILL CONT TO MONITOR.
[2019-11-10] MEDS: DOCUSATE SODIUM 100 MG CAPSULE PO SCH ×2 (08:29→17:33)
[2019-11-10] MEDS: HEPARIN SODIUM, PORCINE 5000 UNITS/1 ML VIAL SQ SCH ×2 (08:30→21:20)
[2019-11-10] MEDS: CEFTRIAXONE 2 G in IV D5W 100 ML IV SCH (08:31)
--- NOTE | 2019-11-10 10:00 | NUR ---
SEEN BY PT PT SEEN BY PT TODAY.
[2019-11-10] MEDS: POLYETHYLENE GLYCOL 3350 17 GM POWD.PACK PO PRN (11:24)
--- NOTE | 2019-11-10 12:00 | NUR ---
CONSTIPATION PT NOTED WITH NO BM >3 DAYS. MIRALAX PRN ADMINISTERED. WILL MONITOR FOR BM. ENCOURAGED FLUIDS.
[2019-11-10] MEDS: *INSULIN REGULAR(HUMULIN R)HUM 100 UNIT/ML VIAL SQ PRN ×3 (12:01→22:19)
--- NOTE | 2019-11-10 13:00 | NUR ---
URINE COLLECTION URINE COLLECTED FOR URINE OSMOLALITY AND URINE SODIUM PER MD ORDERS. NOTIFIED LAB FOR BAKERY CHEF.
[2019-11-10 16:00] VITALS: BP 113/64
[2019-11-10 16:02] LABS: OSMOLALITY,URINE 421 mOS/kg (340-1090)
[2019-11-10 16:06] LABS: URINE SODIUM, RANDOM 87 mmol/l (40-220)
--- NOTE | 2019-11-10 19:00 | NUR ---
MS RN CLOSING NOTES PT IN BED AWAKE ALERT AND ORIENTED X 4. NO CARDIAC OR RESPIRATORY DISTRESS NOTED. NO SOB NOTED. SATURATING WELL ON ROOM AIR. IV ACCESS NOTED ON R FOREARM G22. INTACT AND PATENT AND FLUSHING WELL. NO S/S OF INFECTION OR INFILTRATION NOTED. STEVENS CATH IN PLACE. PATENT AND DRAINING WITH CLEAR YELLOW URINE. PT ALSO NOTED WITH A ANIYAH DONALDSON DRAIN RIGHT NEXT TO BACK SURGICAL INCISION. NO DRAINAGE NOTED THROUGHOUT THE SHIFT. SAFETY PRECAUTIONS IN PLACE. BED LOCKED AND IN LOW POSITION, SIDE RAILS UP, CALL LIGHT WITHIN REACH. WILL CONT TO MONITOR.
--- NOTE | 2019-11-10 19:25 | NUR ---
MS RN OPENING NOTES PATIENT AWAKE IN BED. A/OX4. ON RA. NO S/S OF SOB OR C/O PAIN. IV PRESENT ON RIGHT FA, SIZE 22, INTACT & PATENT, NS RUNNING TKO. JPEG DRAIN PRESENT, INTACT & PATENT. STEVENS CATH PRESENT, DRAINING WELL. SAFETY MEASURES IN PLACE AND PATIENT'S NEEDS MET. BED LOCKED, ALARM ON, SIDE RAILS X2, CALL LIGHT WITHIN REACH. WILL CONTINUE TO MONITOR.
[2019-11-10 19:49] VITALS: BP 108/67
[2019-11-10] MEDS: INSULIN GLARGINE, 100 UNIT/ML CARTRIDGE SQ SCH (22:20)
[2019-11-11] MEDS: INSULIN REGULAR, HUMAN 100 UNIT/ML 3 ML VIAL SQ PRN ×3 (06:36→17:09)
[2019-11-11] MEDS: BLOOD SUGAR DIAGNOSTIC 1 EACH STRIP VI SCH ×4 (06:36→21:48)
[2019-11-11 07:16] LABS: BASOPHILS % (AUTO) 0.6 % (0.0-2.0); EOSINOPHILS % (AUTO) 1.8 % (0.0-6.0); HEMATOCRIT 36 % (39-51); HEMOGLOBIN 11.8 g/dL (13.5-17.5); LYMPHOCYTES # (AUTO) 1.3 /CMM (0.8-4.8); LYMPHOCYTES % (AUTO) 16.6 % (20.0-44.0); MEAN CORPUSCULAR HGB CONC 33 g/dl (31.0-36.0); MEAN CORPUSCULAR VOLUME 84 fL (80-96); MONOCYTES # (AUTO) 0.9 /CMM (0.1-1.30); NEUTROPHILS # (AUTO) 5.5 /CMM (1.8-8.9); PLATELET COUNT (AUTO) 331 /CMM (150-450); RED BLOOD CELL COUNT(AUTO) 4.23 MIL/uL (4.5-6.0); WHITE BLOOD COUNT (AUTO) 7.9 K/uL (4.3-11.0)
[2019-11-11 07:29] LABS: ALBUMIN 1.7 g/dL (3.4-5.0); BILIRUBIN,TOTAL 0.3 mg/dL (0.2-1.0); CALCIUM, SERUM 8.5 mg/dL (8.5-10.1); CREATININE 0.9 mg/dL (0.6-1.3); PHOSPHORUS 3.4 mg/dL (2.5-4.9); POTASSIUM 4.6 mmol/L (3.5-5.1); TOTAL PROTEIN, SERUM 6.8 g/dL (6.4-8.2)
[2019-11-11 07:36] LABS: THYROID STIMULATING HORMONE 5.233 uIU/mL (0.358-3.74); URIC ACID 1.7 mg/dL (2.6-7.2)
--- NOTE | 2019-11-11 07:40 | NUR ---
MS RN CLOSING NOTES PATIENT AWAKE IN BED. A/OX4. STABLE ON RA. NO DISTRESS NOTED. IV REMAINS INTACT AND PATENT. 40 CC OF SEROSANGUINEOUS FLUID DRAINED FROM JPEG. STEVENS CATH DRAINING WELL, 1700 CC OF CLEAR YELLOW URINE EMPTIED. SAFETY MEASURES IN PLACE AND PATIENT'S NEEDS MET. WILL ENDORSE TO DAY SHIFT NURSE PLAN OF CARE.
--- NOTE | 2019-11-11 07:48 | NUR ---
RN NOTES PATIENT IN BED RESTING. NO SOB OR ACUTE DISTRESS NOTED. PATIENT ALERT, ORIENTED X4. BED IN LOW LOCKED POSITION. CALL LIGHT WITHIN REACH. WILL CONTINUE TO MONITOR.
[2019-11-11 08:00] VITALS: BP 100/50
[2019-11-11] MEDS: HEPARIN SODIUM, PORCINE 5000 UNITS/1 ML VIAL SQ SCH ×2 (09:32→21:39)
[2019-11-11] MEDS: DOCUSATE SODIUM 100 MG CAPSULE PO SCH ×2 (09:32→17:13)
[2019-11-11] MEDS: CEFTRIAXONE 2 G in IV D5W 100 ML IV SCH (10:35)
[2019-11-11] MEDS: POLYETHYLENE GLYCOL 3350 17 GM POWD.PACK PO PRN (12:26)
[2019-11-11 16:00] VITALS: BP 107/67
[2019-11-11] MEDS ORDERED: BISACODYL SUPP (10 MG) 10 MG/SUPP.RECT SUPP.RECT RC PRN (17:30)
--- NOTE | 2019-11-11 19:10 | NUR ---
MS/RN OPENING NOTES: RECEIVED PATIENT AWAKE IN BED. A/OX4. VERBALLY RESPONSIVE AND ABLE TO MAKE NEEDS KNOWN. ON ROOM AIR SATURATING AT 97%. NO S/S OF SOB OR C/O PAIN. IV PRESENT ON LEFT FA, #22G, INTACT & PATENT, HL. JPEG DRAIN PRESENT, INTACT & PATENT. STEVENS CATH PRESENT, DRAINING CLEAR YELLOW URINE. SAFETY MEASURES IN PLACE AND PATIENT'S NEEDS MET. BED LOCKED, ALARM ON, SIDE RAILS X2, CALL LIGHT WITHIN REACH. WILL CONTINUE TO MONITOR ACCORDINGLY.
[2019-11-11] MEDS ORDERED: NA PHOS,M-B/NA PHOS,DI-BA 1 EA ENEMA RC PRN (19:30)
[2019-11-11 20:03] VITALS: BP 120/66
--- NOTE | 2019-11-11 21:30 | NUR ---
MS/RN NOTES: HEPARIN 5000 UNITS ADMINISTERED. CHANGED THE SUBCUTANEOUS SITE. NO S/S OF BLEEDING. WILL KEEP MONITORING PT. ACCORDINGLY.
[2019-11-11] MEDS: INSULIN GLARGINE, 100 UNIT/ML CARTRIDGE SQ SCH (21:51)
[2019-11-11] MEDS: *INSULIN REGULAR(HUMULIN R)HUM 100 UNIT/ML VIAL SQ PRN (21:52)
[2019-11-11 22:00] VITALS: BP 120/66
--- NOTE | 2019-11-11 22:00 | NUR ---
MS/RN NOTES: ACCUCHECK FOR HS IS 295. ADMINISTERED REGULAR INSULIN 6 UNITS AD PER SLIDING SCALE; AND INSULIN LANTUS 10 UNITS ORDERED. PT. DRANK 1 BOX OF APPLE JUICE. WILL CONTINUE MONITORING ACCORDINGLY.
--- NOTE | 2019-11-11 23:10 | NUR ---
MS/RN NOTES: PT. STILL CONSTIPATED. ADMINISTERED MILK OF MAGNESIA 30ML PO. TOLERATED WELL. WILL KEEP MONITORING PT. ACCORDINGLY.
--- NOTE | 2019-11-12 01:55 | NUR ---
MS RN NOTES: PATIENT REQUESTED SLEEPING AID, REMOVED PRN PO AMBIEN 5mg FOR SINCERE RN, DUE TO BEING ON BREAK. WILL ENDORSE TO SINCERE, ENRRIQUE, WHEN RETURNED FROM BREAK AND CONTINUE TO MONITOR PATIENT.
[2019-11-12] MEDS: ZOLPIDEM TARTRATE 5 MG TABLET PO PRN (01:58)
--- NOTE | 2019-11-12 01:58 | NUR ---
MS/RN NOTES: PATIENT REQUESTED SLEEPING MEDICATION. ADMINISTERED 5MG AMBIEN PO ORDERED FOR SLEEP. TOLERATED WELL. WILL REASSESS AND KEEP MONITORING PT. ACCORDINGLY.
--- NOTE | 2019-11-12 02:40 | NUR ---
MS/RN NOTES: PT. IS STARTING TO DOZE OFF, EASILY AWAKEN WHEN TALKED TO. REMINDED PT. ABOUT ENEMA TO BE GIVEN AT 0530. PT REQUESTED TO COME BACK AFTER HE WAKES UP. PER PT "I NEED TO SLEEP". WILL CONTINUE TO MONITOR ACCORDINGLY.
--- NOTE | 2019-11-12 06:05 | NUR ---
MS/RN NOTES: PRIOR TO ADMINISTERING FLEET ENEMA, WHEN PT. TURNED, PT. HAD A BOWEL MOVEMENT. FLEET ENEMA WASTED. PT KEPT CLEAN AND DRY. WILL KEEP MONITORING ACCORDINGLY.
[2019-11-12] MEDS: BLOOD SUGAR DIAGNOSTIC 1 EACH STRIP VI SCH ×4 (06:30→21:31)
[2019-11-12] MEDS: INSULIN REGULAR, HUMAN 100 UNIT/ML 3 ML VIAL SQ PRN ×3 (06:33→17:32)
--- NOTE | 2019-11-12 06:35 | NUR ---
MS/RN NOTES: ACCUCHECK FOR AC IS 266. 9 UNITS OF REGULAR INSULIN ADMINISTERED PER SLIDING SCALE. PT IS NOW DRINKING A BOX OF APPLE JUICE. WILL KEEP MONITORING ACCORDINGLY.
--- NOTE | 2019-11-12 06:51 | NUR ---
MS/RN CLOSING NOTES: PATIENT IS AWAKE IN BED. IN COMFORTABLE POSITION. KEPT WARM, CLEAN AND DRY AT ALL TIMES. TURNED Q2HRS. REMAINS A/OX4. VERBALLY RESPONSIVE AND ABLE TO MAKE NEEDS KNOWN. ON ROOM AIR SATURATING AT 98%. NO S/S OF SOB OR C/O PAIN. IV PRESENT ON LEFT FA, #22G, INTACT & PATENT, HL. ROXANA DRAIN PRESENT, INTACT & PATENT. TOTAL OUTPUT OF 10ML. STEVENS CATH PRESENT, DRAINING CLEAR YELLOW URINE. TOTAL OUTPUT OF 1800 ML. PT HAD 2X BM. EXPRESSED MORE RELIEF NOW. ALL DUE MEDS GIVEN ORDERED. ALL NURSING NEEDS MET AND RENDERED. SAFETY MEASURES IN PLACE AND PATIENT'S NEEDS MET. BED LOCKED, ALARM ON, SIDE RAILS X2, CALL LIGHT WITHIN REACH. WILL ENDORSE TO DAY SHIFT RN FOR SHERIN.
--- NOTE | 2019-11-12 07:10 | NUR ---
MS RN OPENING NOTES: RECEIVED PATIENT AWAKE IN BED. A/OX4. VERBALLY RESPONSIVE AND ABLE TO VERBALIZE NEEDS. NO SOB NOTED. PT SATURATING WELL ON RA AT 98%. NO S/S OF ANY ACUTE DISTRESS NOTED. NO C/O PAIN AT THIS TIME. IV ACCESS TO LFA G#22 HL, INTACT,AND PATENT. JPEG DRAIN PRESENT, INTACT & PATENT. STEVENS CATHETER PRESENT, DRAINING TO GRAVITY CLEAR YELLOW URINE OUTPUT. SAFETY PRECAUTIONS IN PLACE. BED IN LOWEST LOCKED POSITION, BED ALARM ON, SIDE RAILS X2, CALL LIGHT WITHIN REACH. WILL CONTINUE TO MONITOR.
[2019-11-12 07:49] LABS: BASOPHILS # (AUTO) 0.1 /CMM (0.0-0.2); BASOPHILS % (AUTO) 0.6 % (0.0-2.0); EOSINOPHILS % (AUTO) 1.5 % (0.0-6.0); HEMATOCRIT 36 % (39-51); HEMOGLOBIN 12.3 g/dL (13.5-17.5); MEAN CORPUSCULAR HGB CONC 34 g/dl (31.0-36.0); MEAN CORPUSCULAR VOLUME 84 fL (80-96); MONOCYTES # (AUTO) 0.9 /CMM (0.1-1.30); MONOCYTES % (AUTO) 9.8 % (2.0-12.0); NEUTROPHILS # (AUTO) 6.7 /CMM (1.8-8.9); NEUTROPHILS % (AUTO) 77.1 % (43.0-81.0); PLATELET COUNT (AUTO) 350 /CMM (150-450); RED BLOOD CELL COUNT(AUTO) 4.33 MIL/uL (4.5-6.0); WHITE BLOOD COUNT (AUTO) 8.7 K/uL (4.3-11.0)
[2019-11-12 08:00] VITALS: BP 113/66
[2019-11-12 08:02] VITALS: BP 113/66
[2019-11-12 08:02] LABS: CALCIUM, SERUM 8.5 mg/dL (8.5-10.1); CREATININE 1.1 mg/dL (0.6-1.3)
[2019-11-12] MEDS: DOCUSATE SODIUM 100 MG CAPSULE PO SCH ×2 (09:00→17:00)
--- NOTE | 2019-11-12 09:15 | NUR ---
PATIENT'S COAGULATION STUDIES OF 11/05/19 ARE: PT 12.8, PTT 33.5, INR 1.23. CHARGE NURSE, MARISOL MADE AWARE. PER CHARGE NURSE, ADMINISTER HEPARIN SODIUM, PORCINE 5000UNITS SQ Q12HRS SCHEDULE. ORDERS CARRIED OUT. WILL CONTINUE TO MONITOR
[2019-11-12] MEDS: CEFTRIAXONE 2 G in IV D5W 100 ML IV SCH (09:22)
[2019-11-12] MEDS: HEPARIN SODIUM, PORCINE 5000 UNITS/1 ML VIAL SQ SCH ×2 (09:23→21:23)
--- NOTE | 2019-11-12 09:30 | NUR ---
PT SODIUM LEVEL IS 128. RACHEAL GLORIA DNP WAS MADE AWARE. AWAITING ORDERS. NO NEW ORDERS AT THIS TIME, WILL CONTINUE WITH PLAN OF CARE AND CONTINUE TO MONITOR
--- NOTE | 2019-11-12 15:00 | NUR ---
PER SHUKRI TYLER, OBTAIN MICROBIOLOGY RESULTS FROM [facility] INCLUDING INTRAOPERATIVE CULTURE AND BLOOD CULTURE. AUTHORIZATION TO RELEASE INFORMATION FORM WAS SIGNED BY PATIENT AT THIS TIME AND FAXED TO [facility]. WILL CONTINUE WITH PLAN OF CARE AND CONTINUE TO MONITOR
[2019-11-12 16:12] VITALS: BP 121/74
--- NOTE | 2019-11-12 19:10 | NUR ---
MS RN CLOSING NOTES: PATIENT AWAKE IN BED WATCHING TV. A/OX4. PT REMAINED STABLE THROUGHOUT SHIFT. NO SOB NOTED. NO S/S OF ANY ACUTE DISTRESS NOTED. NO C/O PAIN AT THIS TIME. ROSSY DONALDSON DRAIN PRESENT WITH 10CC OUTPUT, INTACT & PATENT. STEVENS CATHETER PRESENT, DRAINING TO GRAVITY CLEAR YELLOW URINE OUTPUT WITH 1000CC. PT KEPT CLEAN AND DRY. ALL NEEDS, CARE, MEDICATIONS AND TREATMENT ADMINISTERED ANTICIPATED PER ORDER. SAFETY PRECAUTIONS IN PLACE. BED IN LOWEST LOCKED POSITION, BED ALARM ON, SIDE RAILS X2, CALL LIGHT WITHIN REACH. WILL ENDORSE TO SCREW DRIVER OPERATOR NURSE FOR SHERIN
--- NOTE | 2019-11-12 19:15 | NUR ---
MS/RN OPENING NOTES: RECEIVED PATIENT RESTING IN BED WATCHING TV. A/OX4. VERBALLY RESPONSIVE AND ABLE TO MAKE NEEDS KNOWN. ON ROOM AIR SATURATING WELL. NO SOB NOTED. NO C/O PAIN. IV PRESENT ON LEFT FA, #22G, INTACT & PATENT, HL. ROXANA DRAIN PRESENT, INTACT & PATENT AND DRAINING. STEVENS CATH PRESENT, DRAINING CLEAR YELLOW URINE. SAFETY MEASURES IN PLACE AND PATIENT'S NEEDS MET. BED LOCKED, ALARM ON, SIDE RAILS X2, CALL LIGHT WITHIN REACH. WILL CONTINUE TO MONITOR ACCORDINGLY.
[2019-11-12 20:00] VITALS: BP 108/73
--- NOTE | 2019-11-12 21:30 | NUR ---
MS/RN NOTES: HEPARIN 5000 UNITS ADMINISTERED SUBCUTANEOUSLY. ROTATED SITE. COAGS AND H&H AND PLATELETS WITHIN ACCEPTABLE LIMITS. PT. HAS NO S/S OF BLEEDING. WILL CONTINUE TO MONITOR.
[2019-11-12] MEDS: INSULIN GLARGINE, 100 UNIT/ML CARTRIDGE SQ SCH (21:35)
[2019-11-12] MEDS: *INSULIN REGULAR(HUMULIN R)HUM 100 UNIT/ML VIAL SQ PRN (21:36)
--- NOTE | 2019-11-12 21:42 | NUR ---
MS/RN NOTES: ACCUCHECK 302. INSULIN LANTUS 10UNITS ADMINISTERED ORDERED; REGULAR INSULIN 8 UNITS ADMINISTERED PER SLIDING SCALE. ROTATED SUBCUTANEOUS SITES. PT IS DRINKING CRANBERRY JUICE. WILL KEEP MONITORING PT ACCORDINGLY.
--- NOTE | 2019-11-12 22:00 | NUR ---
MS/RN NOTES: PT'S SISTER HERRERA CALLED REGARDING PT'S CONDITION. UPDATED FAMILY MEMBER THAT PT IS STABLE AND DOING FINE AT THIS TIME. ALL DUE MEDS ARE GIVEN ORDERED. BLOOD SUGAR IS MONITORED ORDERED.
[2019-11-13] MEDS: ZOLPIDEM TARTRATE 5 MG TABLET PO PRN (01:32)
--- NOTE | 2019-11-13 01:33 | NUR ---
MS/RN NOTES: PATIENT REQUESTED SLEEPING MEDICATION. VS WNL. ADMINISTERED 5MG AMBIEN PO ORDERED FOR SLEEP. TOLERATED WELL. WILL REASSESS AND KEEP MONITORING PT. ACCORDINGLY.
[2019-11-13] MEDS: BLOOD SUGAR DIAGNOSTIC 1 EACH STRIP VI SCH ×4 (06:31→22:56)
[2019-11-13] MEDS: INSULIN REGULAR, HUMAN 100 UNIT/ML 3 ML VIAL SQ PRN ×3 (06:33→18:42)
[2019-11-13 06:36] LABS: BASOPHILS # (AUTO) 0.1 /CMM (0.0-0.2); BASOPHILS % (AUTO) 0.9 % (0.0-2.0); EOSINOPHILS % (AUTO) 1.9 % (0.0-6.0); HEMATOCRIT 34 % (39-51); HEMOGLOBIN 11.3 g/dL (13.5-17.5); LYMPHOCYTES # (AUTO) 1.2 /CMM (0.8-4.8); LYMPHOCYTES % (AUTO) 13.1 % (20.0-44.0); MEAN CORPUSCULAR HGB CONC 34 g/dl (31.0-36.0); MEAN CORPUSCULAR VOLUME 83 fL (80-96); MONOCYTES # (AUTO) 0.8 /CMM (0.1-1.30); MONOCYTES % (AUTO) 8.4 % (2.0-12.0); NEUTROPHILS # (AUTO) 6.8 /CMM (1.8-8.9); NEUTROPHILS % (AUTO) 75.7 % (43.0-81.0); PLATELET COUNT (AUTO) 359 /CMM (150-450); RED BLOOD CELL COUNT(AUTO) 4.05 MIL/uL (4.5-6.0)
--- NOTE | 2019-11-13 06:47 | NUR ---
MS/RN CLOSING NOTES: PATIENT IS RESTING WARM AND COMFORTABLE IN BED. KEPT CLEAN AND DRY AT ALL TIMES. TURNED Q2HRS. REMAINS A/OX4. VERBALLY RESPONSIVE AND ABLE TO MAKE NEEDS KNOWN. ON ROOM AIR SATURATING AT 98%. NO S/S OF SOB OR C/O PAIN. IV PRESENT ON LEFT FA, #22G, INTACT & PATENT, HL. ROXANA DRAIN PRESENT, INTACT & PATENT. TOTAL OUTPUT OF 10ML. STEVENS CATH PRESENT, DRAINING CLEAR YELLOW URINE. TOTAL OUTPUT OF 2200 ML. ALL DUE MEDS GIVEN ORDERED. ALL NURSING NEEDS MET AND RENDERED. SKIN ASSESSED AND APPLIED MEPILEX ON THE SACRUM AND ON THE MIDBACK SURGICAL INCISION SITE. SAFETY MEASURES IN PLACE AND PATIENT'S NEEDS MET. BED LOCKED, ALARM ON, SIDE RAILS X2, CALL LIGHT WITHIN REACH. WILL ENDORSE TO DAY SHIFT RN FOR SHERIN.
[2019-11-13 06:48] LABS: ALBUMIN 1.8 g/dL (3.4-5.0); BILIRUBIN,TOTAL 0.2 mg/dL (0.2-1.0); CALCIUM, SERUM 8.4 mg/dL (8.5-10.1); CREATININE 0.9 mg/dL (0.6-1.3); MAGNESIUM 1.9 mg/dL (1.8-2.4); PHOSPHORUS 3.3 mg/dL (2.5-4.9); POTASSIUM 4.3 mmol/L (3.5-5.1); TOTAL PROTEIN, SERUM 6.9 g/dL (6.4-8.2)
[2019-11-13 08:00] VITALS: BP 100/61
--- NOTE | 2019-11-13 08:00 | NUR ---
MS RN OPENING NOTES Received Patient resting in bed. A/O x 4. VS stable with no acute distress. Breathing even and unlabored on room air with no respiratory distress. Denies pain. No signs and symptoms of pain. Mccarthy Cath in place and patent. ROXANA drain in place and patent. 22g PIV on LFA clean, intact, patent and flushing well. Safety precautions in place. Bed locked and set to lowest position with side rails x 2 up. All needs rendered at this time. Call light within reach. Will continue to monitor.
--- NOTE | 2019-11-13 08:50 | NUR ---
BOSSMAN CONSULT: SW received consult for placement. BOSSMAN followed up with case worker Lisandra who stated she is currently working on placement for pt.
[2019-11-13] MEDS: CEFTRIAXONE 2 G in IV D5W 100 ML IV SCH (10:05)
[2019-11-13] MEDS: DOCUSATE SODIUM 100 MG CAPSULE PO SCH ×2 (10:08→16:03)
[2019-11-13] MEDS: HEPARIN SODIUM, PORCINE 5000 UNITS/1 ML VIAL SQ SCH ×2 (10:10→21:32)
[2019-11-13] MEDS: HYDROCODONE/APAP 5/325MG 1 EACH TABLET PO PRN (15:55)
[2019-11-13 16:00] VITALS: BP 97/62
--- NOTE | 2019-11-13 16:30 | NUR ---
MS RN NOTES Obtained consent for PICC Line insertion at this time. Explained risks and benefits. Patient verbalized understanding and agreement. Notified sister (Emma). Placed consent in chart. Will continue to monitor.
--- NOTE | 2019-11-13 19:03 | NUR ---
MS RN CLOSING NOTES Patient resting in bed. A/O x 4. VS stable with no acute distress. Breathing even and unlabored on room air with no respiratory distress. Denies pain. No signs and symptoms of pain. Mccarthy Cath in place and patent. ROXANA drain in place and patent. 22g PIV on LFA clean, intact, patent and flushing well. MAURI PICC Line clean, intact, patent and flushing well. Safety precautions in place. Bed locked and set to lowest position with side rails x 2 up. All needs rendered at this time. Call light within reach. Will endorse plan of care to oncoming shift.
--- NOTE | 2019-11-13 19:10 | NUR ---
MS/RN OPENING NOTES: REPORT GIVEN BY ENRRIQUE POST (DAY SHIFT) RECEIVED PATIENT RESTING IN BED. A/OX4. VERBALLY RESPONSIVE AND ABLE TO MAKE NEEDS KNOWN. ON ROOM AIR SATURATING WELL. NO SOB NOTED. NO C/O PAIN. IV PRESENT ON LEFT FA, #22G, INTACT & PATENT, HL. MAURI PICC LINE, PATENT, INATCT AND FLUSHING WELL. PT STATES HE DID NOT RECEIVE DINNER. REQUESTED FOOD. PT. OFFERED CHICKEN SANDWICH. ROXANA DRAIN PRESENT, INTACT & PATENT AND DRAINING. STEVENS CATH PRESENT, DRAINING CLEAR YELLOW URINE. SAFETY MEASURES IN PLACE AND PATIENT'S NEEDS MET. BED LOCKED, ALARM ON, SIDE RAILS X2, CALL LIGHT WITHIN REACH. WILL CONTINUE TO MONITOR ACCORDINGLY.
[2019-11-13 20:44] VITALS: BP 102/64
--- NOTE | 2019-11-13 22:00 | NUR ---
MS/RN NOTES: ACCUCHECK FOR HS 235. ADMINISTERED 4 UNITS OF REG. INSULIN PER SLIDING SCALE. INSULIN LANTUS 16UNITS ADMINISTERED WELL.
[2019-11-13] MEDS: INSULIN GLARGINE, 100 UNIT/ML CARTRIDGE SQ SCH (22:57)
[2019-11-13] MEDS: *INSULIN REGULAR(HUMULIN R)HUM 100 UNIT/ML VIAL SQ PRN (22:58)
[2019-11-14] MEDS: ZOLPIDEM TARTRATE 5 MG TABLET PO PRN ×2 (00:26→22:29)
--- NOTE | 2019-11-14 00:27 | NUR ---
MS/RN NOTES: PATIENT REQUESTED SLEEPING MEDICATION. VS WNL. ADMINISTERED 5MG AMBIEN PO ORDERED FOR SLEEP. TOLERATED WELL. WILL REASSESS AND KEEP MONITORING PT. ACCORDINGLY.
[2019-11-14 06:21] LABS: CALCIUM, SERUM 8.2 mg/dL (8.5-10.1); CREATININE 0.9 mg/dL (0.6-1.3); POTASSIUM 4.4 mmol/L (3.5-5.1)
[2019-11-14 06:36] LABS: BASOPHILS # (AUTO) 0.1 /CMM (0.0-0.2); BASOPHILS % (AUTO) 0.8 % (0.0-2.0); EOSINOPHILS % (AUTO) 2.1 % (0.0-6.0); HEMATOCRIT 34 % (39-51); HEMOGLOBIN 11.2 g/dL (13.5-17.5); MEAN CORPUSCULAR HGB CONC 33 g/dl (31.0-36.0); MEAN CORPUSCULAR VOLUME 84 fL (80-96); MONOCYTES # (AUTO) 0.7 /CMM (0.1-1.30); MONOCYTES % (AUTO) 9.4 % (2.0-12.0); NEUTROPHILS # (AUTO) 5.5 /CMM (1.8-8.9); NEUTROPHILS % (AUTO) 73.7 % (43.0-81.0); PLATELET COUNT (AUTO) 374 /CMM (150-450); RED BLOOD CELL COUNT(AUTO) 4.07 MIL/uL (4.5-6.0); WHITE BLOOD COUNT (AUTO) 7.5 K/uL (4.3-11.0)
--- NOTE | 2019-11-14 06:51 | NUR ---
MS/RN NOTES: UPON CLEANING PT, THERE IS A SKIN TEAR NOTED. CHARTED ON THE FLOW SHEET, ORDERED WOUND CONSULT. WILL ENDORSE TO DAY SHIFT RN
[2019-11-14] MEDS: BLOOD SUGAR DIAGNOSTIC 1 EACH STRIP VI SCH ×4 (07:04→21:52)
[2019-11-14] MEDS: INSULIN REGULAR, HUMAN 100 UNIT/ML 3 ML VIAL SQ PRN ×2 (07:07→11:40)
--- NOTE | 2019-11-14 07:08 | NUR ---
MS/RN NOTES: ACCUCHECK AC IS 173. ADMINISTERED REG. INSULIN. 3 UNITS PER SLIDING SCALE. GIVEN CRANBERRY JUICE. AWAITING FOR BREAKFAST. WILL CONTINUE TO MONITOR.
--- NOTE | 2019-11-14 07:30 | NUR ---
MS/RN Patient received Patient received from network mgr. A/O X4, vital signs stable, no pain or discomfort at this time. Continues to be without any sensation or movement of bilateral lower extremities. Explained to patient the importance of turning and repositioning every 2-3 hours to prevent further skin breakdown, in agreement to be turned. Heels off loaded to prevent pressure. Matt ight within reach, will continue to monitor and ensure safety.
--- NOTE | 2019-11-14 07:45 | NUR ---
MS/RN NOTES: INCIDENT REPORT DONE. COIN COUNTER AND WRAPPER NOTIFIED. DAY SHIFT RN NOTIFIED. WOUND CONSULT ORDERED.
--- NOTE | 2019-11-14 07:55 | NUR ---
MS/RN CLOSING NOTES: PATIENT IS RESTING WARM AND COMFORTABLE IN BED. KEPT CLEAN AND DRY AT ALL TIMES. TURNED Q2HRS. REMAINS A/OX4. VERBALLY RESPONSIVE AND ABLE TO MAKE NEEDS KNOWN. ON ROOM AIR SATURATING AT 98%. NO S/S OF SOB OR C/O PAIN. IV PRESENT ON LEFT FA, #22G, INTACT & PATENT, HL. ROXANA DRAIN PRESENT, INTACT & PATENT. TOTAL OUTPUT OF 15ML. STEVENS CATH PRESENT, DRAINING CLEAR YELLOW URINE. ALL DUE MEDS GIVEN ORDERED. ALL NURSING NEEDS MET AND RENDERED. SKIN ASSESSED AND APPLIED MEPILEX ON THE SACRUM AND ON THE MIDBACK SURGICAL INCISION SITE. ORDERED WOUND CONSULT FOR TODAY. SAFETY MEASURES IN PLACE AND PATIENT'S NEEDS MET. BED LOCKED, ALARM ON, SIDE RAILS X2, CALL LIGHT WITHIN REACH. WILL ENDORSE TO DAY SHIFT RN FOR SHERIN.
[2019-11-14 08:00] VITALS: BP_SYST 101; BP_SYST 105; BP_DIAS 63; BP_DIAS 68
[2019-11-14] MEDS: CEFTRIAXONE 2 G in IV D5W 100 ML IV SCH (08:22)
[2019-11-14] MEDS: DOCUSATE SODIUM 100 MG CAPSULE PO SCH ×2 (08:22→17:05)
--- NOTE | 2019-11-14 08:26 | NUR ---
WOUND CARE CONSULT: PT PRESENTS WITH SURGICAL INCISION TO MIDBACK WITH ROXANA DRAIN, PRESENT ON ADMISSION. PT SEEN FOR SKIN TEAR TO SACRAL AREA. PT ABLE TO TURN AND REPOSITION WITH ASSISTANCE. HILDA FITZGERALD NOTED. DEFER TO SURGEON FOR SURGICAL SITE/ROXANA DRAIN. RECOMMENDATIONS MADE FOR SKIN PROTECTION AND SKIN TEAR WOUND CARE. DISCUSSED WITH NURSING STAFF. PT IS ON ADAM ISOFLEX LOW AIRLOSS BED. CURRENT ANAND SCORE IS 14. WILL SEE PRN. CRUZ IN AGREEMENT WITH PLAN OF CARE. Addendum: 11/14/19 at 0828 by VALERIANO CORDERO WNDNU Amended: Links added.
[2019-11-14] MEDS: HEPARIN SODIUM, PORCINE 5000 UNITS/1 ML VIAL SQ SCH ×2 (08:33→21:17)
--- NOTE | 2019-11-14 09:03 | NUR ---
MS/RN Medications Medications administered as ordered, all tubings changed.
--- NOTE | 2019-11-14 09:45 | NUR ---
MS/RN S/B Dr Mccoy Seen by DNP - await placement, medical case worker working with family to find placement.
--- NOTE | 2019-11-14 10:21 | NUR ---
MS/RN Dressing Dressing to sacrum changed, picture taken and placed in chart.
--- NOTE | 2019-11-14 10:30 | NUR ---
MS/RN S/B PT Seen by PT - able to sit on edge of bed whilst holding on to side rails.
--- NOTE | 2019-11-14 12:17 | NUR ---
MS/RN Blood sugar Blood sugar 312, as per sliding scale, 12 units regular insulin to be administered.
--- NOTE | 2019-11-14 15:56 | NUR ---
MS/associate professor of management Per case management, still looking for placement.
[2019-11-14 16:00] VITALS: BP 110/65
[2019-11-14] MEDS: *INSULIN REGULAR(HUMULIN R)HUM 100 UNIT/ML VIAL SQ PRN ×2 (16:47→21:55)
--- NOTE | 2019-11-14 18:10 | NUR ---
MS/RN End note Patient remains in stable condition. ROXANA drain with minimal output (5ml), dressing to sacrum clean and dry, intact. Continue to wait for appropriate placement to be found. Will endorse to [facility] shift lead.
--- NOTE | 2019-11-14 19:20 | NUR ---
RN sim opening notes Received Pt from morning nurse. Pt is resting in bed comfortably. Pt is alert and orientedX4. Respiration is normal in room air. No SOB. No S/S of distress noted. Pt denies any pain or discomfort at this time. MAURI piccline is clean, intact and patent. Mccarthy cath is clean, intact and draining yellow urine. ROXANA drain is clean,intact and patent. Mid upper back surgical dressing is clean, dry and intact. Safety precautions is maintained. Bed at low position, brakes locked, side rails upX2 and call light is within reach. Will continue to monitor.
[2019-11-14 20:00] VITALS: BP 109/59
[2019-11-14] MEDS: ACETAMINOPHEN 325 MG TABLET PO PRN (20:29)
--- NOTE | 2019-11-14 20:29 | NUR ---
RN medsurg notes Pt's oral temp is 99.4. Administered tylenol 325mg/2 tabs/po as ordered for mild fever. Cooling measures is maintained. Safety precautions is maintained. Will continue to monitor.
[2019-11-14 20:33] VITALS: BP 109/59
[2019-11-14] MEDS: INSULIN GLARGINE, 100 UNIT/ML CARTRIDGE SQ SCH (21:53)
--- NOTE | 2019-11-14 22:00 | NUR ---
ENRRIQUE montemayor notes Pt's oral temp is 98.9 F. Will continue to monitor.
--- NOTE | 2019-11-14 22:31 | NUR ---
RN medsurbernardo notes Pt is having problem of falling a sleep and requesting a sleeping pill. Administered ambien 5 mg/po as ordered for sleeping. Safety precautions is maintained. Will continue to monitor.
[2019-11-15] MEDS: BLOOD SUGAR DIAGNOSTIC 1 EACH STRIP VI SCH ×4 (06:31→21:43)
[2019-11-15] MEDS: INSULIN REGULAR, HUMAN 100 UNIT/ML 3 ML VIAL SQ PRN ×3 (06:35→17:43)
--- NOTE | 2019-11-15 06:53 | NUR ---
RN medsurg closing notes Pt is resting in bed comfortably. Pt is alert and orientedX4. Respiration is normal in room air. No SOB. No S/S of distress noted. VS is stable. Afebrile. Routine meds were given as ordered. MAURI piccline is clean, intact and SL. Mccarthy cath is clean, intact and draining yellow urine 1800 ml. ROXANA drain is clean,intact and patent. Mid upper back surgical dressing is clean, dry and intact. Skin care and wound care provided as ordered. Safety precautions is maintained. Bed at low position, brakes locked, side rails upX2 and call light is within reach. Will endorse to morning nurse for SHERIN.
[2019-11-15 08:00] VITALS: BP 94/58
[2019-11-15] MEDS: DOCUSATE SODIUM 100 MG CAPSULE PO SCH ×2 (08:52→17:45)
[2019-11-15] MEDS: HEPARIN SODIUM, PORCINE 5000 UNITS/1 ML VIAL SQ SCH ×2 (08:59→20:24)
[2019-11-15 09:03] LABS: BASOPHILS # (AUTO) 0.1 /CMM (0.0-0.2); BASOPHILS % (AUTO) 0.9 % (0.0-2.0); EOSINOPHILS % (AUTO) 2.1 % (0.0-6.0); HEMATOCRIT 35 % (39-51); HEMOGLOBIN 11.6 g/dL (13.5-17.5); LYMPHOCYTES # (AUTO) 0.8 /CMM (0.8-4.8); LYMPHOCYTES % (AUTO) 13.2 % (20.0-44.0); MEAN CORPUSCULAR HGB CONC 33 g/dl (31.0-36.0); MEAN CORPUSCULAR VOLUME 84 fL (80-96); MONOCYTES # (AUTO) 0.6 /CMM (0.1-1.30); MONOCYTES % (AUTO) 9.3 % (2.0-12.0); NEUTROPHILS # (AUTO) 4.7 /CMM (1.8-8.9); NEUTROPHILS % (AUTO) 74.5 % (43.0-81.0); PLATELET COUNT (AUTO) 392 /CMM (150-450); RED BLOOD CELL COUNT(AUTO) 4.18 MIL/uL (4.5-6.0); WHITE BLOOD COUNT (AUTO) 6.3 K/uL (4.3-11.0)
[2019-11-15 09:22] LABS: CALCIUM, SERUM 8.5 mg/dL (8.5-10.1); CREATININE 0.9 mg/dL (0.6-1.3); POTASSIUM 4.2 mmol/L (3.5-5.1)
[2019-11-15] MEDS: CEFTRIAXONE 2 G in IV D5W 100 ML IV SCH (09:40)
[2019-11-15 16:00] VITALS: BP 123/73
--- NOTE | 2019-11-15 18:08 | NUR ---
/RN NOTE THE PATIENT IS ALERT AND ORIENTED X4. IN ROOM AIR AND SATURATION LEVEL IS AT 97%. DENIES SOB. RESPIRATION REGULAR AND UNLABORED. DENIES PAIN. THE PATIENT IS IN NO APPARENT DISTRESS. MAURI PICC LINE PATENT AND SALINE LOCKED. STEVENS CATH PRESENT AND NOTED 1100 ML CLEAR, YELLOW COLOR URINE OUTPUT DURING THE SHIFT. NO BLADDER DISTENSION NOTED. BED LOW AND LOCKED. SIDE RAILS UP X3. CALL LIGHT WITHIN REACH. WILL ENDORSE TO SOLAR SYSTEM DESIGNER. Addendum: 11/15/19 at 1932 by SARA CHU RN /ENRRIQUE NOTE 10 ML OF SEROUS OUTPUT FROM ROXANA DURING AM SHIFT.
--- NOTE | 2019-11-15 19:10 | NUR ---
RN OPENING NOTES Received patient A/O x4, awake on bed. On RA, denies any discomfort at this time. Discussed with patien the POC for the night, patient verbalized understanding. Kept on bed clean, dry and comfortable. On fall and aspiration precautions. Will continue to monitor accordingly.
[2019-11-15 20:00] VITALS: BP_SYST 123; BP_SYST 159; BP_DIAS 73; BP_DIAS 74
[2019-11-15 21:05] VITALS: BP 98/64
[2019-11-15] MEDS: INSULIN GLARGINE, 100 UNIT/ML CARTRIDGE SQ SCH (21:44)
[2019-11-15] MEDS: *INSULIN REGULAR(HUMULIN R)HUM 100 UNIT/ML VIAL SQ PRN (21:46)
[2019-11-15] MEDS: ZOLPIDEM TARTRATE 5 MG TABLET PO PRN (21:53)
--- NOTE | 2019-11-16 06:50 | NUR ---
RN CLOSING NOTES Patient asleep on bed, on Fowlers position. On RA, no SOB/respiratory distress noted, breathing even and unlabored. Patient denies any discomfort at this time. ROXANA drain suction to bulb, with <10ml serosanguineous output noted. With indwelling FC with clear yellow urine output noted. All nursing needs attended. Due meds given as ordered. On tele monitor with NSR noted. With occasional V-pacing with multifocal PVCs. Kept on bed clean, dry and comfortable. Endorsed.
--- NOTE | 2019-11-16 07:30 | NUR ---
MS/ RN OPENING NOTES Patient is awake in bed, alert and oriented X 4. Respiration is normal on room air. No SOB. No S/S of distress noted. patient is Afebrile and states no pain at this time. MAURI piccline is clean, intact and Saline lock. Mccarthy cath is in place and intact. ROXANA drain is clean,intact and patent. Mid upper back surgical dressing is clean, dry and intact. Safety measures in place, Bed in low position, brakes locked, side rails up X 2 and call light within reach. Will monitor patient through out shift.
[2019-11-16 08:00] VITALS: BP 90/60
[2019-11-16] MEDS: INSULIN REGULAR, HUMAN 100 UNIT/ML 3 ML VIAL SQ PRN ×3 (08:20→17:17)
[2019-11-16] MEDS: BLOOD SUGAR DIAGNOSTIC 1 EACH STRIP VI SCH ×4 (08:38→21:49)
[2019-11-16] MEDS: DOCUSATE SODIUM 100 MG CAPSULE PO SCH ×2 (08:46→17:14)
[2019-11-16] MEDS: HEPARIN SODIUM, PORCINE 5000 UNITS/1 ML VIAL SQ SCH (08:47)
[2019-11-16] MEDS: CEFTRIAXONE 2 G in IV D5W 100 ML IV SCH (08:56)
--- NOTE | 2019-11-16 10:50 | NUR ---
MS/ RN NOTES ROXANA DRAIN REMOVE BY SHUKRI ESCOTO. ROXANA DRAIN OUTPUT DURING THE SHIFT 9ML FLUID SEROSENOUAS. SHUKRI ESCOTO CLEAN SITE AND PLACED DRESSING ON. PATINET STATES NO PAIN. NO ACTTIVE BLEEDING NOTED, WILL CONTINUE TO MONITOR.
[2019-11-16 16:00] VITALS: BP 108/67
--- NOTE | 2019-11-16 17:00 | NUR ---
MS/RN NOTE FOLLOW UP IS DONE WITH [facility] FOR REQUESTED MED RECORD. NOT AVAILABLE YET. ENDORSED TO CONTINUE TO FOLLOW UP.
--- NOTE | 2019-11-16 18:52 | NUR ---
MS/RN CLOSING NOTES PATIENT IS AWAKE IN BED ALERT AND ORIENTED X 4. PATIENT IS ON ROOM AIR STATING WELL, NO SIGNS OF LABORED BREATHING. NO SIGN OF DISTRESS NOTED. F/C IN PLACE AND INTACT, URINE CLEAR AND YELLOW. PATIENT HAS MAURI PICC LINE SALINE LOCK. ROXANA DRAIN HAS BEEN REMOVED SEE NURSES NOTED. SAFETY MEASURES IN PLACE, BED IN LOW POSITION AND LOCKED, PLACED IN SEMI FOWLERS POSITION. CALL LIGHT IS WITHIN REACH. WILL ENDORSE CARE TO MORTAR MIXER.
[2019-11-16 19:30] VITALS: BP 119/70
--- NOTE | 2019-11-16 19:46 | NUR ---
MS RN NOTES PATIENT IN BED, RESTING, ALERT AND ORIENTED X 4. BREATHING EVEN AND UNLABORED ON ROOM AIR. SHOWS NO SIGNS OF ACUTE RESPIRATORY DISTRESS. NO ACUTE PAIN. FC INTACT AND IN PLACE FLOWING URINE. PICC LINE MAURI SL SHOWS NO SIGNS OF INFILTRATION, NO REDNESS. SAFETY PRECAUTIONS IN PLACE. BED IN LOWEST POSITION, LOCKED, AND CALL LIGHT KEPT WITHIN REACH. WILL CONTINUE TO MONITOR.
[2019-11-16 20:00] VITALS: BP 119/70
[2019-11-16] MEDS: INSULIN GLARGINE, 100 UNIT/ML CARTRIDGE SQ SCH (21:52)
[2019-11-16] MEDS: *INSULIN REGULAR(HUMULIN R)HUM 100 UNIT/ML VIAL SQ PRN (21:55)
[2019-11-16] MEDS: ZOLPIDEM TARTRATE 5 MG TABLET PO PRN (21:57)
--- NOTE | 2019-11-16 21:57 | NUR ---
MS RN NOTES PATIENT REQUEST AMBIEN FOR SLEEP. GIVEN PRN AMBIEN AT 2157. WILL CONTINUE TO MONITOR.
[2019-11-17] MEDS: *INSULIN REGULAR(HUMULIN R)HUM 100 UNIT/ML VIAL SQ PRN ×2 (06:34→22:14)
[2019-11-17] MEDS: BLOOD SUGAR DIAGNOSTIC 1 EACH STRIP VI SCH ×4 (06:34→22:28)
--- NOTE | 2019-11-17 06:42 | NUR ---
MS RN NOTES PATIENT IN BED, ASLEEP, ALERT AND ORIENTED X 4. BREATHING EVEN AND UNLABORED ON ROOM AIR. SHOWS NO SIGNS OF ACUTE RESPIRATORY DISTRESS. NO ACUTE PAIN. FC INTACT AND IN PLACE FLOWING URINE. PICC LINE MAURI SL SHOWS NO SIGNS OF INFILTRATION, NO REDNESS. ALL DUE MEDICATIONS GIVEN. SAFETY PRECAUTIONS IN PLACE. BED IN LOWEST POSITION, LOCKED, AND CALL LIGHT KEPT WITHIN REACH. WILL ENDORSE TO ONCOMING NURSE.
[2019-11-17] MEDS: CEFTRIAXONE 2 G in IV D5W 100 ML IV SCH (08:55)
[2019-11-17] MEDS: DOCUSATE SODIUM 100 MG CAPSULE PO SCH ×2 (09:09→16:49)
[2019-11-17] MEDS: INSULIN REGULAR, HUMAN 100 UNIT/ML 3 ML VIAL SQ PRN ×2 (12:25→18:03)
--- NOTE | 2019-11-17 18:28 | NUR ---
MS RN CLOSING NOTE PATIENT IN BED. A/OX 4. TOLERATING ROOM AIR, RESPIRATIONS ARE EVEN AND UNLABORED. NO SOB NOTED. F/C INTACT. NO DISTRESS. IV ACCESS MAINTAINED , PATENT AND SALINE LOCKED. BED REMAINS LOW AND LOCKED HOB ELEVATED IN HIGH FOWLERS, SIDE RIALS UP X2. CALL LIGHT WITHIN REACH. ALL NEEDS ATTENDED AND ANTICIPATED.WILL ENDORSE TO NEXT SHIFT
--- NOTE | 2019-11-17 19:10 | NUR ---
MS RN OPENING NOTES: RECEIVED PATIENT IN BED, AWAKE A/O X4. NO SOB NOTED. NO COMPLAIN OF PAIN. WITH STEVENS CATHETER INTACT. WITH SCD's ON BOTH LEGS. CALL LIGHT WITHIN REACH. BED ALARM ON. BED IN LOWEST AND LOCKED POSITION.
[2019-11-17 20:00] VITALS: BP 114/69
[2019-11-17] MEDS: ACETAMINOPHEN 325 MG TABLET PO PRN (22:15)
[2019-11-17] MEDS: INSULIN GLARGINE, 100 UNIT/ML CARTRIDGE SQ SCH (22:28)
[2019-11-17] MEDS: ZOLPIDEM TARTRATE 5 MG TABLET PO PRN (22:32)
--- NOTE | 2019-11-18 05:58 | NUR ---
MS RN CLOSING NOTES: PATIENT IN BED, AWAKE, A/O X4. PARAPLEGIC. INCONTINENT, WITH DIAPER. HAD BM, BROWNISH SOFT STOOL. GRADUATING MACHINE OPERATOR CLEANED THE PATIENT. WITH SACRAL SKIN TEAR-CLEANSED GENTLY WITH NS, PAT DRIED, AND APPLIED XEROFORM DRESSING AND COVERED WITH MEPILEX DRESSING. PATIENT HAS SURGICAL SCAR ON THE UPPER MID BACK, HEALED. CALL LIGHT WITHIN REACH. BED ALARM ON. BED IN LOWEST AND LOCKED POSITION. NO SOB NOTED. NO COMPLAIN OF PAIN. RESTED THROUGHOUT THE NIGHT. WITH STEVENS CATHETER INTACT, DRAINING TO A CLEAR YELLOW URINE. WITH SCD's ON BOTH LEGS AT ALL TIMES.
--- NOTE | 2019-11-18 06:09 | NUR ---
PATIENT'S IV ON THE LEFT FOREARM REMOVED, WITH TIP INTACT, NO BLEEDING NOTED. PICC LINE ON THE LEFT UPPER ARM DOUBLE LUMENS IS INTACT, DRESSING IS INTACT CLEAN AND DRY.
[2019-11-18] MEDS: INSULIN REGULAR, HUMAN 100 UNIT/ML 3 ML VIAL SQ PRN (06:32)
[2019-11-18] MEDS: BLOOD SUGAR DIAGNOSTIC 1 EACH STRIP VI SCH ×4 (06:34→22:08)
--- NOTE | 2019-11-18 06:34 | NUR ---
BLOOD SUGAR FINGERSTICK THIS AM IS 215, 6 UNITS REGULAR INSULIN GIVEN.
--- NOTE | 2019-11-18 07:30 | NUR ---
MS/RN Opening note Patient received from material handler 2nd shift. A/O X4, vitla signs within normal range, no fevers noted. Mccarthy catheter to gravity, draining anju colored urin. Patient continues to deny any sensation or movement to bilateral lower extremities. Heels off loaded on pillows to prevent skin breakdown. Safety measures in place, call light within reach. Will continue to monitor and ensure safety.
[2019-11-18 08:00] VITALS: BP 100/68
[2019-11-18 08:14] LABS: BASOPHILS # (AUTO) 0.1 /CMM (0.0-0.2); BASOPHILS % (AUTO) 1.1 % (0.0-2.0); EOSINOPHILS % (AUTO) 3.6 % (0.0-6.0); HEMATOCRIT 34 % (39-51); HEMOGLOBIN 11.5 g/dL (13.5-17.5); LYMPHOCYTES % (AUTO) 18.2 % (20.0-44.0); MEAN CORPUSCULAR HGB CONC 34 g/dl (31.0-36.0); MEAN CORPUSCULAR VOLUME 83 fL (80-96); MONOCYTES # (AUTO) 0.5 /CMM (0.1-1.30); MONOCYTES % (AUTO) 8.9 % (2.0-12.0); NEUTROPHILS # (AUTO) 3.7 /CMM (1.8-8.9); NEUTROPHILS % (AUTO) 68.2 % (43.0-81.0); PLATELET COUNT (AUTO) 312 /CMM (150-450); RED BLOOD CELL COUNT(AUTO) 4.07 MIL/uL (4.5-6.0); WHITE BLOOD COUNT (AUTO) 5.4 K/uL (4.3-11.0)
[2019-11-18 08:50] LABS: BILIRUBIN,TOTAL 0.2 mg/dL (0.2-1.0); CREATININE 0.7 mg/dL (0.6-1.3); MAGNESIUM 1.9 mg/dL (1.8-2.4); TOTAL PROTEIN, SERUM 7.1 g/dL (6.4-8.2)
[2019-11-18 08:51] LABS: CALCIUM, SERUM 8.8 mg/dL (8.5-10.1)
[2019-11-18] MEDS: DOCUSATE SODIUM 100 MG CAPSULE PO SCH ×2 (08:53→17:09)
[2019-11-18] MEDS: CEFTRIAXONE 2 G in IV D5W 100 ML IV SCH (08:53)
--- NOTE | 2019-11-18 10:00 | NUR ---
MS/RN Dressing Dressing to sacral area changed as per order.
[2019-11-18] MEDS: *INSULIN REGULAR(HUMULIN R)HUM 100 UNIT/ML VIAL SQ PRN ×3 (11:49→21:55)
--- NOTE | 2019-11-18 12:00 | NUR ---
MS/RN Blood sugar Blood sugar at noon 270, as per sliding scale, nine units of regular insulin to be administered.
[2019-11-18 16:00] VITALS: BP 110/70
--- NOTE | 2019-11-18 17:00 | NUR ---
MS/RN Blood sugar Blood sugar at 5p 290, insulin coverage given as per sliding scale.
--- NOTE | 2019-11-18 18:20 | NUR ---
MS/RN End note Patient remains in stable condition, no new needs or concerns. Will endorse to night warehouse selector.
--- NOTE | 2019-11-18 19:26 | NUR ---
MS RN OPENING NOTES PATIENT AWAKE IN BED. A/OX4; ABLE TO VERBALIZE NEEDS. ON RA. NO S/S OF ACUTE RESPIRATORY DISTRESS; BREATHING IS EVEN AND UNLABORED. NO C/O PAIN AT THIS TIME. STEVENS CATH PRESENT AND DRAINING WELL. PICC LINE PRESENT ON RIGHT UPPER ARM, HEP LOCKED. SAFETY MEASURES IN PLACE AND PATIENT'S NEEDS MET. BED LOCKED, ALARM ON, SIDE RAILS X2, CALL LIGHT WITHIN REACH. WILL CONTINUE TO MONITOR.
[2019-11-18 20:07] VITALS: BP 108/67
[2019-11-18 20:15] VITALS: BP 108/67
[2019-11-18] MEDS: INSULIN GLARGINE, 100 UNIT/ML CARTRIDGE SQ SCH (21:54)
[2019-11-18] MEDS: ZOLPIDEM TARTRATE 5 MG TABLET PO PRN (21:55)
--- NOTE | 2019-11-19 04:20 | NUR ---
MS RN NOTES REPORT GIVEN TO ENRRIQUE EUGENE, FOR CONTINUATION OF CARE.
--- NOTE | 2019-11-19 04:37 | NUR ---
MS FLAT BED OPERATOR NOTES PATIENT TRANSFERRED TO MS2 ROOM 200. ALL BELONGINGS WITH PATIENT.
--- NOTE | 2019-11-19 04:40 | NUR ---
RN NOTES Received patient transferred from [facility] to MS 200. On O2 via NC @ 2LPM, saturating well, no respiratory distress noted. A/O x4, awake, no s/sx of discomfort noted. Kept on bed clean, dry and comfortable. On fall and aspiration precautions. Will continue to monitor accordingly.
[2019-11-19] MEDS: BLOOD SUGAR DIAGNOSTIC 1 EACH STRIP VI SCH (06:41)
--- NOTE | 2019-11-19 06:47 | NUR ---
RN CLOSING NOTES Patient asleep, easily awaken. On RA, no SOB/respiratory distress noted. Patient denies any discomfort at this time. Afebrile the whole shift, no new unusualities. All nursing needs attended. Kept on bed clean, dry and comfortable. Endorsed.
[2019-11-19] MEDS: INSULIN REGULAR, HUMAN 100 UNIT/ML 3 ML VIAL SQ PRN ×3 (07:22→17:13)
--- NOTE | 2019-11-19 08:00 | NUR ---
MS RN OPENING NOTES Received Patient resting in bed. A/O x 4. VS stable with no acute distress. Breathing even and unlabored on room air with no respiratory distress. Denies pain. No signs and symptoms of pain. Mccarthy Cath in place and patent. MAURI PICC Line clean, intact, patent and flushing well. Safety precautions in place. Bed locked and set to lowest position with side rails x 2 up. All needs rendered at this time. Call light within reach. Will continue to monitor.
[2019-11-19 08:42] VITALS: BP 96/89
[2019-11-19] MEDS: DOCUSATE SODIUM 100 MG CAPSULE PO SCH ×2 (09:34→16:49)
[2019-11-19] MEDS: CEFTRIAXONE 2 G in IV D5W 100 ML IV SCH (09:34)
[2019-11-19] MEDS: BLOOD SUGAR DIAGNOSTIC 1 EACH STRIP IN SCH ×3 (11:57→21:46)
[2019-11-19] MEDS ORDERED: DEXTROSE 50%-WATER 50 ML DISP.SYRIN IV PRN (12:00)
[2019-11-19 16:02] VITALS: BP 110/67
--- NOTE | 2019-11-19 18:23 | NUR ---
MS RN CLOSING NOTES Patient resting in bed. A/O x 4. VS stable with no acute distress. Breathing even and unlabored on room air with no respiratory distress. Denies pain. No signs and symptoms of pain. Mccarthy Cath in place and patent. MAURI PICC Line clean, intact, patent and flushing well. Safety precautions in place. Bed locked and set to lowest position with side rails x 2 up. All needs rendered at this time. Call light within reach. Will endorse plan of care to oncoming shift.
--- NOTE | 2019-11-19 19:30 | NUR ---
MS RN OPENING NOTES RECEIVED PATIENT FROM MORNING SHIFT, ALERT AND ORIENTED X 3. VERBALLY RESPONSIVE AND ABLE TO FOLLOW DIRECTIONS. BREATHING REGULAR AND UNLABORED ON ROOM AIR. LEFT UPPER ARM PICC LINE INTACT AND PATENT, FLUSHING WELL WITH NO BLEEDING OR S/S OF INFILTRATION NOTED. STEVENS CATH PATENT DRAINING CLEAR YELLOW URINE WITH MODERATE AMOUNT ON BAG. DENIES SUICIDAL OR PAIN/DISCOMFORT AT THIS TIME. BED LOW AND LOCKED ON SEMI FOWLERS POSITION. CALL LIGHT IN REACH. WILL CONTINUE TO MONITOR.
[2019-11-19 20:00] VITALS: BP 109/63
[2019-11-19 20:06] VITALS: BP 109/63
[2019-11-19] MEDS: ZOLPIDEM TARTRATE 5 MG TABLET PO PRN (21:46)
[2019-11-19] MEDS: INSULIN GLARGINE, 100 UNIT/ML CARTRIDGE SQ SCH (21:48)
[2019-11-19] MEDS: *INSULIN REGULAR(HUMULIN R)HUM 100 UNIT/ML VIAL SQ PRN (21:50)
--- NOTE | 2019-11-19 22:00 | NUR ---
MS RN NOTES BS 258mg/dl, 30UNITS LANTUS AND 6UNITS REGULAR INSULIN GIVEN SQ. SITE ROTATED. SNACKS PROVIDED ON BEDSIDE. WILL CONTINUE TO MONITOR.
--- NOTE | 2019-11-19 22:30 | NUR ---
MS RN NOTES WOUND ASSESSMENT DONE, PHOTO TAKEN ATTACHED TO CHART. WOUND TREATMENT ALSO PROVIDED, REFUSED TO BE REPOSITIONED ON THE SIDES. RISK AND BENEFITS EXPLAINED 3X.
--- NOTE | 2019-11-20 00:30 | NUR ---
MS RN NOTES REFUSED TO BE REPOSITIONED ON THE SIDES. RISK AND BENEFITS EXPLAINED.
--- NOTE | 2019-11-20 04:30 | NUR ---
MS RN NOTES REFUSED TO BE REPOSITIONED ON THE SIDES. RISK AND BENEFITS EXPLAINED.
--- NOTE | 2019-11-20 06:30 | NUR ---
MS RN CLOSING NOTES PATIENT IN BED, ALERT AND ORIENTED X 3. AFEBRILE WITH NO S/S OF DISTRESS OBSERVED. LEFT UPPER ARM PICC LINE PATENT AND FLUSHING WELL. DENIES ANY PAIN/DISCOMFORT AT THIS TIME. STEVENS CATH PATENT DRAINING CLEAR YELLOW URINE WITH 500CC OUTPUT. BED LOW AND LOCKED ON SEMI FOWLERS POSITION. CALL LIGHT IN REACH. WILL ENDORSE TO MORNING SHIFT FOR SHERIN.
[2019-11-20] MEDS: BLOOD SUGAR DIAGNOSTIC 1 EACH STRIP IN SCH ×4 (06:50→21:15)
[2019-11-20] MEDS: INSULIN REGULAR, HUMAN 100 UNIT/ML 3 ML VIAL SQ PRN ×3 (06:51→16:51)
--- NOTE | 2019-11-20 07:29 | NUR ---
MS RN NOTES PATIENT IN BED RESTING NO SOB OR ACUTE DISTRESS NOTED. PATIENT ALERT, ORIENTED X 3. BED IN LOW LOCKED POSITION. SAFETY MEASURES IN PLACE. CALL LIGHT WITHIN REACH. WILL CONTINUE TO MONITOR.
[2019-11-20 07:41] LABS: BASOPHILS # (AUTO) 0.1 /CMM (0.0-0.2); BASOPHILS % (AUTO) 1.8 % (0.0-2.0); EOSINOPHILS % (AUTO) 3.5 % (0.0-6.0); HEMATOCRIT 32 % (39-51); HEMOGLOBIN 10.8 g/dL (13.5-17.5); LYMPHOCYTES % (AUTO) 22.9 % (20.0-44.0); MEAN CORPUSCULAR HGB CONC 33 g/dl (31.0-36.0); MEAN CORPUSCULAR VOLUME 83 fL (80-96); MONOCYTES # (AUTO) 0.5 /CMM (0.1-1.30); MONOCYTES % (AUTO) 10.4 % (2.0-12.0); NEUTROPHILS # (AUTO) 2.8 /CMM (1.8-8.9); NEUTROPHILS % (AUTO) 61.4 % (43.0-81.0); PLATELET COUNT (AUTO) 255 /CMM (150-450); RED BLOOD CELL COUNT(AUTO) 3.87 MIL/uL (4.5-6.0); WHITE BLOOD COUNT (AUTO) 4.5 K/uL (4.3-11.0)
[2019-11-20 07:57] LABS: ALBUMIN 1.9 g/dL (3.4-5.0); BILIRUBIN,TOTAL 0.2 mg/dL (0.2-1.0); CALCIUM, SERUM 8.7 mg/dL (8.5-10.1); CREATININE 0.8 mg/dL (0.6-1.3); MAGNESIUM 1.8 mg/dL (1.8-2.4); PHOSPHORUS 3.6 mg/dL (2.5-4.9); TOTAL PROTEIN, SERUM 7.1 g/dL (6.4-8.2)
--- NOTE | 2019-11-20 08:00 | NUR ---
MS RN NOTES PATIENT WAS SEEN BY WOUND NURSE FOR SUSPECTED DTI . WOUND CARE ORDERS OBTAINED. PATIENT WAS REFEREED TO SURGEON FOR WOUND ORDERS. MD AWARE OF THE WOUND. PATIENT REFUSED TURNING AND REPOSITIONING OVER NIGHT. EDUCATED PATIENT ON THE IMPORTANCE OF TURNING AND REPOSITIONING BY WOUND NURSE AND PRIMARY NURSE, PATIENT AGREED. WOUND CARE PERFORMED ORDERED. WILL CONTINUE TO MONITOR AND TURN AND REPOSITION EVERY TWO HOURS. DIETARY CONSULT PLACED FOR PROPER NUTRITION.
[2019-11-20] MEDS: CEFTRIAXONE 2 G in IV D5W 100 ML IV SCH (08:30)
[2019-11-20] MEDS: DOCUSATE SODIUM 100 MG CAPSULE PO SCH ×2 (08:30→16:49)
[2019-11-20 08:40] VITALS: BP 98/64
--- NOTE | 2019-11-20 09:20 | NUR ---
WOUND CARE CONSULT: PT SEEN FOR SACRAL DEEP TISSUE INJURY IN EVOLUTION. RECOMMEND SURGICAL CONSULT. DR TY ATKINS NOTIFIED OF CONSULT REQUEST. RECOMMENDATIONS MADE FOR SKIN PROTECTION AND WOUND CARE. DISCUSSED WITH NURSING STAFF. PER NURSING STAFF, PT HAS BEEN REFUSING TO TURN AND REPOSITION. WILL SEE PRN. CRUZ IN AGREEMENT WITH PLAN OF CARE. IN AGREEMENT WITH PLAN OF CARE. Addendum: 11/20/19 at 921 by VALERIANO EAST Amended: Links added. Addendum: 11/20/19 at 09 by VALERIANO KNIGHTU DISCUSSED IMPORTANCE OF OFFLOADING WOUND AND REPOSITIONING WITH PT. PT STATED UNDERSTANDING AND WILLINGNESS TO COMPLY.
[2019-11-20 16:46] VITALS: BP 103/69
[2019-11-20] MEDS: METFORMIN 500 MG TABLET PO SCH (16:49)
--- NOTE | 2019-11-20 18:53 | NUR ---
MS RN NOTES PATIENT IN BED RESTING NO SOB OR ACUTE DISTRESS NOTED. ALL DUE MEDICATIONS ADMINISTERED. ALL NEEDS MET. NO ACUTE CHANGES NOTED DURING SHIFT. WILL ENDORSE CARE TO PM SHIFT.
[2019-11-20 20:00] VITALS: BP 103/69
[2019-11-20] MEDS: INSULIN GLARGINE, 100 UNIT/ML CARTRIDGE SQ SCH (21:16)
[2019-11-20] MEDS: *INSULIN REGULAR(HUMULIN R)HUM 100 UNIT/ML VIAL SQ PRN (21:18)
[2019-11-20] MEDS: ZOLPIDEM TARTRATE 5 MG TABLET PO PRN (21:23)
--- NOTE | 2019-11-20 21:30 | NUR ---
MS RN NOTES COMPLAINED OF INABILITY TO STAY ASLEEP, AMBIEN 5MG GIVEN BY MOUTH. NON-PHARMACOLOGICAL INTERVENTIONS PROVIDED. WILL CONTINUE TO MONITOR.
--- NOTE | 2019-11-20 22:00 | NUR ---
MS RN NOTES BS 287mg/dl, 30UNITS LANTUS AND 6UNITS REGULAR INSULIN GIVEN SQ. SITE ROTATED. SNACKS PROVIDED ON BEDSIDE. WILL CONTINUE TO MONITOR.
--- NOTE | 2019-11-20 22:45 | NUR ---
MS RN NOTES WOUND TREATMENT PROVIDED, REPOSITIONED ON HIS RIGHT SIDE.
--- NOTE | 2019-11-21 06:30 | NUR ---
MS RN CLOSING NOTES PATIENT IN BED, ALERT AND ORIENTED X 3. AFEBRILE WITH NO S/S OF DISTRESS OBSERVED. LEFT UPPER ARM PICC LINE PATENT AND FLUSHING WELL. DENIES ANY PAIN/DISCOMFORT AT THIS TIME. STEVENS CATH PATENT DRAINING CLEAR YELLOW URINE WITH 1200cc OUTPUT. BED LOW AND LOCKED ON SEMI FOWLERS POSITION. CALL LIGHT IN REACH. WILL ENDORSE TO MORNING SHIFT FOR SHERIN.
[2019-11-21] MEDS: BLOOD SUGAR DIAGNOSTIC 1 EACH STRIP IN SCH ×4 (06:33→21:17)
[2019-11-21] MEDS: INSULIN REGULAR, HUMAN 100 UNIT/ML 3 ML VIAL SQ PRN ×3 (06:34→17:31)
[2019-11-21 08:00] VITALS: BP 108/71
[2019-11-21] MEDS: METFORMIN 500 MG TABLET PO SCH ×2 (09:11→17:30)
[2019-11-21] MEDS: DOCUSATE SODIUM 100 MG CAPSULE PO SCH ×2 (09:11→17:30)
[2019-11-21] MEDS: CEFTRIAXONE 2 G in IV D5W 100 ML IV SCH (09:12)
--- NOTE | 2019-11-21 18:35 | NUR ---
MS RN NOTES PATIENT IN BED RESTING NO SOB OR ACUTE DISTRESS NOTED. NO ACUTE CHANGES NOTED. ALL DUE MEDICATIONS ADMINISTERED. ALL NEEDS MET. WILL ENDORSE CARE TO PM SHIFT.
--- NOTE | 2019-11-21 19:00 | NUR ---
RN OPENING NOTES Received patient awake resting on bed. On RA, no SOB/respiratory distress noted at this time. Patient denies any pain at this time. Kept on bed clean, dry and comfortable. On fall and aspiration precautions. Will continue to monitor accordingly.
[2019-11-21 20:00] VITALS: BP 105/79
[2019-11-21] MEDS: ZOLPIDEM TARTRATE 5 MG TABLET PO PRN (21:17)
[2019-11-21] MEDS: *INSULIN REGULAR(HUMULIN R)HUM 100 UNIT/ML VIAL SQ PRN (21:19)
[2019-11-21] MEDS: INSULIN GLARGINE, 100 UNIT/ML CARTRIDGE SQ SCH (21:20)
[2019-11-22 06:34] LABS: BASOPHILS # (AUTO) 0.1 /CMM (0.0-0.2); BASOPHILS % (AUTO) 1.7 % (0.0-2.0); EOSINOPHILS % (AUTO) 5.7 % (0.0-6.0); HEMATOCRIT 33 % (39-51); HEMOGLOBIN 10.9 g/dL (13.5-17.5); LYMPHOCYTES # (AUTO) 1.2 /CMM (0.8-4.8); LYMPHOCYTES % (AUTO) 29.6 % (20.0-44.0); MEAN CORPUSCULAR HGB CONC 33 g/dl (31.0-36.0); MEAN CORPUSCULAR VOLUME 84 fL (80-96); MONOCYTES # (AUTO) 0.4 /CMM (0.1-1.30); MONOCYTES % (AUTO) 9.8 % (2.0-12.0); NEUTROPHILS # (AUTO) 2.1 /CMM (1.8-8.9); NEUTROPHILS % (AUTO) 53.2 % (43.0-81.0); PLATELET COUNT (AUTO) 245 /CMM (150-450); RED BLOOD CELL COUNT(AUTO) 3.91 MIL/uL (4.5-6.0); WHITE BLOOD COUNT (AUTO) 3.9 K/uL (4.3-11.0)
[2019-11-22] MEDS: BLOOD SUGAR DIAGNOSTIC 1 EACH STRIP IN SCH ×3 (06:40→16:39)
--- NOTE | 2019-11-22 06:48 | NUR ---
RN CLOSING NOTES Patient asleep, easily awaken. No new complaints made. All nursing needs attended. Due meds given as ordered. Kept on bed clean, dry and comfortable. On fall and aspiration precautions. Endorsed.
--- NOTE | 2019-11-22 07:24 | NUR ---
MS RN OPENING NOTE RECEIVED PATIENT IN BED SLEEPING COMFORTABLY. PATIENT IN NO ACUTE DISTRESS. NO SOB NOTED. PATIENT BREATHING IS EVEN AND UNLABORED. SAFETY PRECAUTIONS IN PLACE. PATIENT BED IS LOCKED AND IN LOWEST POSITION. CALL LIGHT WITHIN REACH. WILL CONTINUE TO MONITOR.
[2019-11-22 08:00] VITALS: BP 95/63
[2019-11-22 08:04] LABS: CALCIUM, SERUM 9.1 mg/dL (8.5-10.1); CREATININE 0.7 mg/dL (0.6-1.3); POTASSIUM 4.1 mmol/L (3.5-5.1)
[2019-11-22] MEDS: CEFTRIAXONE 2 G in IV D5W 100 ML IV SCH (08:12)
[2019-11-22] MEDS: METFORMIN 500 MG TABLET PO SCH ×2 (08:13→16:38)
[2019-11-22] MEDS: DOCUSATE SODIUM 100 MG CAPSULE PO SCH ×2 (08:13→16:38)
[2019-11-22] MEDS: INSULIN REGULAR, HUMAN 100 UNIT/ML 3 ML VIAL SQ PRN ×2 (11:59→16:45)
--- NOTE | 2019-11-22 15:52 | NUR ---
MS RN NOTE CALLED FROM [facility] FOR PATIENT COVID RESULTS. COVID RESULTS ARE NEGATIVE. RAUL CONNOLLY NOTIFIED AND MADE AWARE AND PAINT LINE OPERATOR MALORIE MADE AWARE.
--- NOTE | 2019-11-22 17:13 | NUR ---
MS RN NOTE SPOKE AND DISCUSSED WITH RAUL CONNOLLY NP. PER RAUL LI DC ORDER TO REHAB [facility]. TO CONTINUE TO IV ABX FOR 6 WEEKS TOTAL UNTIL 12/19/19. COVID RESULT NEGATIVE, PICKUP TO BE TONIGHT AT 2044 ARRANGED BY SUPERVISOR CARTON AND CAN SUPPLY MARCOS.
--- NOTE | 2019-11-22 19:00 | NUR ---
MS RN CLOSING NOTE PATIENT IN BED RESTING COMFORTABLY. PATIENT MEDICALLY CLEARED FOR DISCHARGE. PATIENT IN NO ACUTE DISTRESS. NO SOB NOTED. PATIENT BREATHING IS EVEN AND UNLABORED. PATIENT STATES NO PAIN AT THIS TIME. PATIENT MAURI PICC LINE PATENT AND INTACT. STEVENS CATHETER PATENT AND INTACT HANGING TO GRAVITY, DRAINING CLEAR YELLOW URINE. REPORT GIVEN TO [facility] TO ENRRIQUE ALEXANDRE. PATIENT MED RECON TMS FORM COMPLETED UNDER TELEPHONE VERBAL ORDERS FROM MAINE CONNOLLY NP TO DC NARCOTICS AND KEEP PATIENT ON ROCEPHIN INDICATED ROCEPHIN 2G FOR 6 WEEKS AND STOP DATE OF 12/19/19 FOR LAST DOSE, AND CONTINUE REST OF MEDICATIONS. SINCERE OSUNA FOR SECOND WITNESS. DC INSTRUCTIONS PROVIDED TO PATIENT. PATIENT VERBALIZED UNDERSTANDING. PATIENT HAS BELONGINGS AT THE BEDSIDE AND SIGNED BELONGINGS LIST. SKIN ASSESSED, NO NEW SKIN BREAKDOWN NOTED. PATIENT KEPT CLEAN, DRY AND COMFORTABLE THROUGHOUT SHIFT. WOUND CARE PROVIDED ORDERED. NEEDS AND CONCERNS ADDRESSED. PATIENT SAFETY PRECAUTIONS IN PLACE. PATIENT BED IS LOCKED AND IN LOWEST POSITION. CALL LIGHT WITHIN REACH. WILL ENDORSE CARE TO PM SHIFT FOR SHERIN.
--- NOTE | 2019-11-22 19:14 | NUR ---
RN OPENING NOTES Patient asleep on bed, easily awaken. On RA, denies any discomfort at this time. Patient is for discharge, awaiting for picking table worker time, ETA: [id number]. Per ENRRIQUE Combs, report was given, discharge papers signed by the patient, discharge instructions given to patient by ENRRIQUE Combs. On fall and aspiration precautions. Will continue to monitor accordingly.
[2019-11-22 20:00] VITALS: BP 113/68
--- NOTE | 2019-11-22 20:16 | NUR ---
RN NOTES Received a call from transportation service, fruit or nut picker time will be delayed for another 45mins. Notified patient.
[2019-11-22 20:49] VITALS: BP 113/68
[2019-11-22] MEDS: ZOLPIDEM TARTRATE 5 MG TABLET PO PRN (21:02)
[2019-11-22] MEDS: HYDROCODONE/APAP 5/325MG 1 EACH TABLET PO PRN (21:26)
--- NOTE | 2019-11-22 21:33 | NUR ---
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 Report and discharge paper given to Suzan Baltazar. Patient in stable condition, on RA, no respiratory distress. Afebrile, no complaints at this time. PICC line MAURI remained patent and intact. FC indwelling well with clear yellow urine output, emptied prior to departure. Medicated for pain prior to transport per patient request. Transferred to [facility] comfortably. Accompanied by 2 ceiling insulation blower, left the facility at this time.
== END 2019-11-22 21:33 | disposition home health service (06) | DRG 49 ==
LOC: TELE 22:09 → MED 11-08 03:40 → MEDSG2 11-19 04:38
PROVIDERS: ADMIT Hospitalist; ATTEND Nurse Practitioner Acute Care
PROC: 02HV33Z Insertion of Infusion Device into Superior Vena Cava, Percutaneous Approach (ICD-10-PCS; principal; 2019-11-13)
PROC: B548ZZA Ultrasonography of Superior Vena Cava, Guidance (ICD-10-PCS; principal; 2019-11-13)
DX: G06.1 Intraspinal abscess and granuloma (principal); E44.0 Moderate protein-calorie malnutrition; E22.2 Syndrome of inappropriate secretion of antidiuretic hormone; L89.159 Pressure ulcer of sacral region, unspecified stage; G82.20 Paraplegia, unspecified; R20.0 Anesthesia of skin; N39.0 Urinary tract infection, site not specified; Z98.890 Other specified postprocedural states; E11.65 Type 2 diabetes mellitus with hyperglycemia; Z86.61 Personal history of infections of the central nervous system; Z22.321 Carrier or suspected carrier of Methicillin susceptible Staphylococcus aureus; E88.09 Other disorders of plasma-protein metabolism, not elsewhere classified
CPT/HCPCS: 36415; 36569; 80048-TC; 80053-TC; 80061-TC; 80202-TC; 82533; 82962-TC; 83735-TC; 83935-TC; 84100-TC; 84300-TC; 84439-TC; 84443-TC; 84550-TC; 85025-TC; 85730-TC; 87040-TC; 87081-TC; 97110-TC; 97112-TC; 97530-TC; A6253; A6403; C1751; G0378; J0696; J1644; J1815; J3370; J7030; J7050; J7060; U0003-CS